=== PATIENT | female | born 1950 | race Caucasian/White ===

== ENCOUNTER 2016-04-16 17:49 | Inpatient (IN) | payer MEDICARE ==
[~2016-04-16] VITALS: Ht 167.6 cm; Wt 50.1 kg
[~2016-04-16 17:49] MED LIST: PAX20
[2016-04-16 17:51] VITALS: BP 135/88; PULSE 106; RESP 20; O2SAT 83
--- NOTE | 2016-04-16 18:15 | ED.REPORT ---
HPI-Dyspnea / Wheezing Date of Service Apr 16, 2016 ED Provider: Juan Pablo Barboza DO This patient is a 65 year old female with a history of pneumonia, splenectomy, and psychiatric problems presenting to the ED complaining of cough that started a week ago. Pt. also complains of fever, chills, dyspnea, and vomiting but denies chest pain, hemoptysis, or diarrhea. EMS found her hypoxic with an oxygen saturation of 83. The pt has received influenza and pneumonia vaccines this year. Nursing Notes Stated Complaint: COUGH Chief Complaint: FLU/Cold Symptoms Nursing Notes Reviewed: Yes Allergies: Coded Allergies: Benzodiazepines (Verified Allergy, Severe, 04/16/16) chlordiazepoxide (Verified Allergy, Severe, 04/16/16) fluoxetine (Verified Allergy, Severe, 04/16/16) Uncoded Allergies: LIBRIUM (Allergy, Unknown, 01/06/05) Scheduled ([sudafed 12 hour ]) 1 TAB PO DAILY Estradiol (Estradiol) 0.5 Mg Tablet 0.5 MG PO DAILY Fluticasone Propionate (Fluticasone Propionate Nasal) 16 Gm [place].susp 1 SPRAY NASAL DAILY Gabapentin (Gabapentin) 300 Mg Capsule 300 MG PO TID Paroxetine (Paroxetine) 20 Mg Tablet 20 MG PO DAILY Scheduled PRN Ibuprofen (Ibuprofen) 400 Mg Tablet 400 MG PO BID PRN PRN For Pain Tizanidine (Tizanidine) 4 Mg Tablet 4 MG PO TID PRN PRN For Pain General Time Seen by MD: 18:15 Chief Complaint Cough Hx Obtained From: Patient, EMS Arrived By: Ambulance Sudden in Onset?: No Onset Occurred: 1 week ago Symptom Duration: Since onset Recent Healthcare: No recent doctor visit, No recent hospitalization Similar Sx Previous: Yes Past Medical History Past Medical History pneumonia Reports: Mental illness Reports: Depression Past Surgical History Splenectomy Smoking History Current Every Day Smoker Social History history of substance abuse Ambulatory Status Independent Review of Systems Review of Systems Note: Denies hemoptysis Basic Review of Systems Eyes: Vision NL Neurologic: NL mental status Psychiatric: Normal thought content Constitutional: Reports: Chills, Fever Respiratory: Reports: Dyspnea on exertion, Non-productive cough Cardiovascular: Denies: Chest pain Complete sys rev & neg: except as marked. GI: Reports: Vomiting, Denies: Diarrhea Physical Exam Initial Vital Signs Vital Signs (First) Date Time Temp Pulse Resp B/P Pulse Ox O2 Delivery O2 Flow Rate FiO2 04/16/16 17:51 37.1 106 20 135/88 83 Room Air 04/16/16 20:44 6 Initial VS: Reviewed Head / Eyes: Atraumatic, Normocephalic, PERRL ENT: Mucous membranes moist, Conjunctiva normal, No scleral icterus Abdomen / GI: Soft, Non-tender, No guarding, No rebound, No distention Extremities: Vascular intact, Neuro intact Skin: Warm, Dry, No cyanosis Neurologic: Alert, Oriented, Nonfocal Psychiatric: Mood/affect normal, Behavior normal, Normal thought content General/Constitutional: Awake, Alert Neck: Atraumatic, Full range of motion Respiratory / Chest: Atraumatic Resp Distress / Stridor: Positive: Resp distress mild crackles in R lung tachypneic hypoxic Cardiovascular: Heart rate NL, Regular rhythm, Heart sounds NL, No murmurs Interpretation & Diagnostics Interpretation & Diagnostics: Angiography, CT, IMPRESSION: 1. No pulmonary embolus. 2. Groundglass opacities in upper lobes and alveolar opacities in the lung bases. Findings are nonspecific, but can be related to pneumonia or pulmonary edema. Please correlate with clinical and laboratory data. 3. Right hilar and mediastinal lymphadenopathy which be reactive or neoplastic. 4. 5 mm, solid left lower lobe lung nodule. Recommend followup CT scan of the chest based on criteria outlined below. 5. Cholelithiasis. Fleischner Society criteria for SOLID lung nodule followup. Nodule size (mm)Low-risk patientHigh-risk [id number] follow-up neededFollow-up at 12 mo; if no change, no further follow-up>0-0Wytzrx-tu CT at 12 mo; if no change, no further follow-up needed.Initial follow-up CT at 6-12 mo, then 18-24 mo if no change. >6-8Initial follow-up CT at 6-12 mo, then 18-24 mo if no change. Initial follow-up CT at 3-6 mo, then 9-12 mo and 24 mo if no change. >8Follow-up CT at 3, 9, 24 mo. Or PET and/or biopsy.Same as for low-risk pts. Fleischner Society criteria for SUB-SOLID lung nodule followup. Solitary pure ground-glass nodules5 mm or lessNo followup needed. >5 mm3 mo follow-up CT to confirm persistence. Then annual CT for 3 years. Part-solid nodules3 mo follow-up CT to confirm persistence. If persistent with solid component <5 mm, annual CT for at least 3 years. If solid component is 5 mm or more, biopsy or surgical resection. Consider PET-CT for lesions > 10 mm. Multiple sub-solid nodulesPure ground glass nodules [address] at 2 and 4 years. Pure ground glass nodules >5 mm without dominant lesion. [address] to confirm persistence, then annual followup CT for at least 3 years. Dominant nodule(s) with part-solid or solid component. [address] to confirm persistence. If persistent, consider biopsy or surgical resection, carlota if lesions have >5 mm solid component. Dictated by: Zulay Herbert MD, PhD on 04/16/2016 at 22:08 Lab Results Interpretation Result Diagram: 04/17/16 0620 04/17/16 0620 Test 04/16/16 18:14 D-Dimer 0.8mg/L (<0.50) Lactic Acid Level 1.6mmol/L (0.4-2.0) Total Bilirubin 0.3mg/dL (0.0-1.2) Aspartate Amino Transf (AST/SGOT) 34U/L (0-50) Alanine Aminotransferase (ALT/SGPT) 13U/L (0-32) Alkaline Phosphatase 72U/L (25-165) Troponin T < 0.010ug/L (0.0-0.011) Pro-B-Type Natriuretic Peptide 455.7pg/mL (0-301) Total Protein 7.1g/dL (6.4-8.4) Albumin 3.1g/dL (3.4-5.0) Hold Bond Top Tube Received (Received) Lab Results Interpretation: NEGATIVE FOR INFLUENZA TYPE A AND B Pulse Oximetry Interpretation Pulse Oximetry Interpretation: 83% on room air Pulse Oximetry: Pulse Ox low ECG Interpretation ECG Interpretation: Normal sinus rhythm with a rate of 96 Time: 18:13 Interpreted by: ED physician X-Ray Chest Interpretation Chest Xray Interpretation: IMPRESSION: No acute cardiopulmonary disease process. Dictated by: Zulay Herbert MD, PhD on 04/16/2016 at 19:08 Interpretation / Wet Read by: Interpret - Radiologist Re-Eval/Medical Decision Source of Hx: Old records, EMS Re-Evaluation/Progress #1: Time of Eval: 19:00 Patient Status: Condition unchanged Re-Evaluation/Progress Note: Discussed results and findings with patient. Spoke with pt. about possible admit. Pt. understands and agrees with plan. All questions have been addressed at this time. Re-Evaluation/Progress #2: Time of Eval: 22:14 Re-Evaluation/Progress Note: Pt. rechecked. Told patient she'd be admitted. Patient understands and agrees with plan. All questions have been addressed at this time. Re-Evaluation/Progress #3: Time of Eval: 22:20 Re-Evaluation/Progress Note: CT consistent with bilateral pneumonia. Pt. is feeling better so she has been taken off of oxygen and sats has dropped to 84%. Reiterated the need to admit her. Pt. understands and agrees with plan. All questions have been addressed Consultation : Referral / Consult Name: Antwan Tamez MD Consulted With: Hospitalist Call Returned at: 23:24 Molder Trimmer: Will see patient, Will see in office, Agrees with eval, Agrees with plan, Accepts admit Note: Consulted with Dr. Tamez, hospitalist, regarding pt.'s case. Discussed findings and results with Dr. Tamez. He agrees with eval and plan. Counseled Regarding: Diagnosis, Lab results, Need for admission Discharge & Departure Impression: Primary Impression: Pneumonia Pneumonia type: due to unspecified organism Laterality: bilateral Lung location: unspecified part of lung Qualified Code: J18.9 - Pneumonia, unspecified organism Additional Impression: Hypoxia Disposition: ADMITTED TO HOSPITAL Discharge Condition All VS Reviewed: Yes Condition: Stable Referrals: An Tapia (PCP) Shani Attestation Portions of this note were transcribed by Kavita Vieyra and Tin Sandy. I, Dr. Barboza personally performed the history, physical exam and medical decision-making ; I reviewed and confirmed the accuracy of the information in the transcribed note. Signed by: Shani Chan, 04/17/2016 and 0158. copies to: An Tapia Todd P DO Apr 16, 2016 18:15 Michelle Vieyra [Kavita] Apr 16, 2016 18:55 TIN SANDY Apr 16, 2016 19:05 Lab Results Interpretation: NEGATIVE FOR INFLUENZA TYPE A AND B Pulse Oximetry Interpretation Pulse Oximetry Interpretation: 83% on room air Pulse Oximetry: Pulse Ox low ECG Interpretation ECG Interpretation: Normal sinus rhythm with a rate of 96 Time: 18:13 Interpreted by: ED physician X-Ray Chest Interpretation Chest Xray Interpretation: IMPRESSION: No acute cardiopulmonary disease process. Dictated by: Zulay Herbert MD, PhD on 04/16/2016 at 19:08 Interpretation / Wet Read by: Interpret - Radiologist Re-Eval/Medical Decision Source of Hx: Old records, EMS Re-Evaluation/Progress #1: Time of Eval: 19:00 Patient Status: Condition unchanged Re-Evaluation/Progress Note: Discussed results and findings with patient. Spoke with pt. about possible admit. Pt. understands and agrees with plan. All questions have been addressed at this time. Re-Evaluation/Progress #2: Time of Eval: 22:14 Re-Evaluation/Progress Note: Pt. rechecked. Told patient she'd be admitted. Patient understands and agrees with plan. All questions have been addressed at this time. Re-Evaluation/Progress #3: Time of Eval: 22:20 Re-Evaluation/Progress Note: CT consistent with bilateral pneumonia. Pt. is feeling better so she has been taken off of oxygen and sats has dropped to 84%. Reiterated the need to admit her. Pt. understands and agrees with plan. All questions have been addressed Consultation : Referral / Consult Name: Antwan Tamez MD Consulted With: Hospitalist Call Returned at: 23:24 Molder Trimmer: Will see patient, Will see in office, Agrees with eval, Agrees with plan, Accepts admit Note: Consulted with Dr. Tamez, hospitalist, regarding pt.'s case. Discussed findings and results with Dr. Tamez. He agrees with eval and plan. Counseled Regarding: Diagnosis, Lab results, Need for admission Discharge & Departure Impression: Primary Impression: Pneumonia Pneumonia type: due to unspecified organism Laterality: bilateral Lung location: unspecified part of lung Qualified Code: J18.9 - Pneumonia, unspecified organism Additional Impression: Hypoxia Disposition: ADMITTED TO HOSPITAL Discharge Condition All VS Reviewed: Yes Condition: Stable Referrals: An Tapia PAC (PCP) Scribe Attestation Portions of this note were transcribed by Kavita Vieyra and Tin Sandy. I, Dr. Barboza personally performed the history, physical exam and medical decision-making ; I reviewed and confirmed the accuracy of the information in the transcribed note. Signed by: Kavita Vieyra and Shani Joseph, 04/17/2016 and 0158. copies to: An Tapia Todd P DO Apr 16, 2016 18:15 Michelle Vieyra [Kavita] Apr 16, 2016 18:55 TIN SANDY Apr 16, 2016 19:05
[2016-04-16 18:24] LABS: BASOPHILS % (AUTO) 0.6 % (0-3); Mean Corpuscular Volume 90.8 fL (81-100)
[2016-04-16 18:27] LABS: EOSINOPHILS % (AUTO) 4.9 % (0-5); MONOCYTES % (AUTO) 9.6 % (4-12); Mean Corpuscular Hemoglobin 30.6 pg (27.0-35.0); NEUTROPHILS % (AUTO) 72.7 % (40-74); Platelet Count 324 bil/L (150-400)
[2016-04-16 18:48] LABS: TROPONIN T < 0.010 ug/L (0.0-0.011)
[2016-04-16] MEDS ORDERED: cefTRIAXone Inj 2,000 MG in IV Premix 1 EACH IV ONE (18:55)
[2016-04-16] MEDS ORDERED: 0.9% Sodium Chloride 1,000 ML IV ONE (18:55)
--- NOTE | 2016-04-16 19:10 | DRSVH ---
PROCEDURE: X-RAY CHEST ONE VIEW, PORTABLE ([id number]) INDICATIONS: chest pain TECHNIQUE: One view of the chest was acquired. COMPARISON: [facility], , CHEST 2 VIEW, 12/11/2015, 3:08. FINDINGS: Surgical changes and devices: None. Lungs and pleura: No pleural effusions or pneumothorax. Lungs are clear. Lungs are hyperinflated zamora ggesting COPD. Please correlate with clinical data. Mediastinum: Mediastinal contours appear normal. Heart size is normal. Bones and chest wall: No suspicious bony lesions. Overlying soft tissues appear unremarkable. IMPRESSION: No acute cardiopulmonary disease process. Dictated by: Zulay Herbert MD, PhD on 04/16/2016 at 19:08 Approved by: Zulay Herbert MD, PhD on 04/16/2016 at 19:08
[2016-04-16] MEDS ORDERED: Albuterol-Ipratropium 3 mL Inhalation Solution NEB ONE (20:30)
[2016-04-16 20:44] VITALS: PULSE 90; RESP 22; O2SAT 94
--- NOTE | 2016-04-16 22:09 | DRSVH ---
PROCEDURE: CT ANGIO CHEST PULMONARY EMBOLISM ([id number]) INDICATIONS: hypoxia, elevated D-Dimer TECHNIQUE: After the administration of intravenous contrast, 2 mm thick sections acquired from the pulmonary api renzo to the posterior costophrenic angles. 3-dimensional maximum intensity projection (MIP) coronal a nd sagittal reformats were then acquired through the thorax. For radiation dose reduction, the follo wing was used: automated exposure control, adjustment of mA and/or kV according to patient size. COMPARISON: None. FINDINGS: Image quality: Excellent. Pulmonary arteries: Pulmonary arteries are normal in size, and demonstrate no intraluminal filling d efects to suggest central pulmonary embolism. Lungs and pleura: Groundglass opacities noted in the upper lobes bilaterally. Groundglass opacity i s nonspecific but can be related to pneumonia or pulmonary edema. Alveolar opacities noted in the mariam ng bases bilaterally which could represent pneumonia or pulmonary edema. There is a 5 mm solid nodul e in the left lower lobe. No pleural effusions. No pleural effusions or pneumothorax. Central and peripheral airways are patent. Mediastinum: Heart size is normal, without pericardial effusion. 1.4 cm right hilar lymph node is no mahin. 1.1 cm precarinal mediastinal lymph node is noted. Large aortopulmonary window mediastinal lym ph nodes are noted with largest node measuring 1.2 cm in short axis. Thoracic aorta is normal in tio iber and enhancement moderate-sized hiatal hernia is noted. Bones and chest wall: No suspicious bony lesions. Ribs and thoracic spine appear intact throughout. Thyroid gland is within normal limits. No axillary or supraclavicular adenopathy. Abdomen: Gallstones are noted visualized portion of the gallbladder Limited evaluation of the upper abdomen is otherwise within normal limits.. IMPRESSION: 1. No pulmonary embolus. 2. Groundglass opacities in upper lobes and alveolar opacities in the lung bases. Findings are nons pecific, but can be related to pneumonia or pulmonary edema. Please correlate with clinical and labo ratory data. 3. Right hilar and mediastinal lymphadenopathy which be reactive or neoplastic. 4. 5 mm, solid left lower lobe lung nodule. Recommend followup CT scan of the chest based on criter ia outlined below. 5. Cholelithiasis. Fleischner Society criteria for SOLID lung nodule followup. Nodule size (mm)Low-risk patientHigh-risk [id number] follow-up neededFollow-up at 12 mo; if no casanova e, no further follow-up>1-3Cealfr-up CT at 12 mo; if no change, no further follow-up needed.Initial f ollow-up CT at 6-12 mo, then 18-24 mo if no change. >6-8Initial follow-up CT at 6-12 mo, then 18-24 mo if no change. Initial follow-up CT at 3-6 mo, then 9-12 mo and 24 mo if no change. >8Follow-up CT at 3, 9, 24 mo. Or PET and/or biopsy.Same as for low-risk pts. Fleischner Society criteria for SUB-SOLID lung nodule followup. Solitary pure ground-glass nodules5 mm or lessNo followup needed. >5 mm3 mo follow-up CT to confirm persistence. Then annual CT for 3 years. Part-solid nodules3 mo follow-up CT to confirm persistence . If persistent with solid component <5 mm, annual CT for at least 3 years. If solid component is 5 mm or more, biopsy or surgical resection. Consider PET-CT for lesions > 10 mm. Multiple sub-solid nodulesPure ground glass nodules [address] at 2 and 4 years. Pure ground glass nodules >5 mm without dominant lesion. [address] to confirm persistence, then annual followup CT for at least 3 years. Dominant nodule(s) with part-solid or solid component. [address] to confirm persistence. If persistent, consider biopsy or surgical resection, carlota if lesions have >5 m m solid component. Dictated by: Zulay Herbert MD, PhD on 04/16/2016 at 22:08 Approved by: Zulay Herbert MD, PhD on 04/16/2016 at 22:08
[2016-04-16] MEDS ORDERED: Azithromycin Inj 500 MG in Dextrose 5% w/Vial Mate 250 ML IV ONE (22:25)
[2016-04-17] VITALS (11 sets, daily range): BP systolic 118–141; BP diastolic 71–82; PULSE 97–111; RESP 16–26; O2SAT 90–99
[2016-04-17] MEDS ORDERED: Ondansetron 2 mg/mL 2 mL Inj IVPUSH PRN (00:25)
[2016-04-17] MEDS ORDERED: Alum-Mag Hydrox-Simeth 30 mL Suspension PO PRN ×2 (00:25→00:35)
[2016-04-17] MEDS ORDERED: 0.9% Sodium Chloride 1,000 ML IV SCH (00:35)
[2016-04-17] MEDS ORDERED: Albuterol 2.5 mg/3 mL Inhalation Solution NEB PRN (00:35)
[2016-04-17] MEDS ORDERED: Polyethylene Glycol (PEG) 17 Gm Powder PO PRN (00:35)
[2016-04-17] MEDS: Heparin 5,000 Unit/mL Inj SUBQ SCH ×3 (01:20→17:08)
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
--- NOTE | 2016-04-17 01:38 | ABG ---
DateTimeAnalyzed 01:34:00 -_ pH ____7.398 - 7.350 7.450 pCO2 ___43.1__ -mmHg 35.0 45.0 pO2 ___78.4__ -mmHg 69.0 116 HCO3- ___26.0__ -mmol/L 22.0 26.0 ABE ____1.5__ -mmol/L -2.0 2.0 tHb ___11.5__ -g/dL O2Hb ___93.6__ -% COHb ____1.3__ -% MetHb ____1.0__ -% sO2 ___95.8__ -% FIO2 ___45.0__ -% Drawn By MK - Date/Time Notified____ 01:38:00 -_ Liter_Flow ____9.0__ -L/min Oxygen Device 1 __oxymask - B 766 -mmHg tO2 ___15.2__ -Vol% Ernie test _Positive -
[2016-04-17] MEDS ORDERED: SUDAFED PO (01:47)
[2016-04-17] MEDS ORDERED: FLUT16SP NASAL (01:47)
[2016-04-17] MEDS ORDERED: ESTR0.5T PO (01:47)
[2016-04-17] MEDS ORDERED: IBUP400T22 PO (01:54)
[2016-04-17] MEDS ORDERED: TIZA4TAB4 PO (01:54)
[2016-04-17] MEDS ORDERED: GABA-502 PO (01:54)
[2016-04-17] MEDS ORDERED: PARO20TA5 PO (01:54)
[2016-04-17] MEDS: guaiFENesin 600 mg ER12 Tablet PO PRN ×2 (02:28→09:43)
--- NOTE | 2016-04-17 04:35 | NUR ---
Admit to 1028 Arrived from ED at 0050, able to transfer self to BR and bed. Arrived on 7L O2 via simple mask; oximetry showed progressive need for O2, currently at 15 L with sats 86-95%; when pt begins to sleep, sat dropping lower; Md ordered BiPAP now. Received IV antibiotics in ED. Otherwise, pt is alert and engaged in care, oriented to hospital routines, IV fluids infusing, SCDs, telemetry. Hourly rounding ongoing.
[2016-04-17] MEDS: Albuterol-Ipratropium 3 mL Inhalation Solution NEB SCH ×4 (05:20→20:31)
--- NOTE | 2016-04-17 05:21 | NUR ---
Transfer to 2013 Pt moved to 2013 with all possessions, RT to start neb treatment and BiPAP per orders.
--- NOTE | 2016-04-17 06:20 | NUR ---
oxygen/SOB pt transferred to room 2012, placed pt on 13L oxy mask SpO2 mid 90s, RT gave breathing treatment, pt with a persistent cough, LS course, pt stating she feels like she cant take a full breath when she starts coughing. called MD, order to TKO IVF, and wait for bipap,
[2016-04-17 06:47] LABS: BASOPHILS % (AUTO) 0.5 % (0-3); EOSINOPHILS % (AUTO) 3.6 % (0-5); MONOCYTES % (AUTO) 7.8 % (4-12); Mean Corpuscular Hemoglobin 30.9 pg (27.0-35.0); Mean Corpuscular Volume 91.6 fL (81-100); NEUTROPHILS % (AUTO) 80.7 % (40-74); Platelet Count 340 bil/L (150-400)
[2016-04-17] MEDS: PARoxetine 20 mg Tablet PO SCH (08:26)
[2016-04-17 09:08] LABS: APPEARANCE,URINE HAZY (CLEAR,HAZY); COLOR,URINE YELLOW (YELLOW); OCCULT BLOOD,URINE NEGATIVE (NEGATIVE); UROBILINOGEN,URINE NORMAL (NORMAL)
--- NOTE | 2016-04-17 14:50 | NUR ---
P: Respiratory Distress I: Pt on 11-13L/OM with sats 91-97%. Sinus tach 100-120's. Taking diet and fluids well. NS TKO. Voiding per bedpan without difficulty. Large formed brown BM. VSS. Afebrile. Turns self. c/o back pain and medicated with Tylenol and kpad with good relief. Medicated for cough. Sputum culture sent. Labs drawn and pending. Pt called her and talked with him. E: Stable S: Alert and Oriented x3. Uses call light appropriately. Frequent rounding.
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
--- NOTE | 2016-04-17 16:31 | DRSVH ---
[facility] [address] [place] [address] Echocardiogram Report Name: JONES SANCHEZ RStudy Date : 04/17/2016 Height: 66 in Hospital Exam Location: [facility] Weight: 119 lb Gender: Female BSA: 1.6 m2 : 1950 Age: 65 yrs BP: 141/82 mmHg Reason For Study: WT. LOSS, COUGH, Ordering Physician: Performed By: Aliyah Santo Referring Physician: Davion Monae Interpretation Summary 1. Normal left ventricular size, wall thickness with normal to hyperdynamic systolic function. Estimated EF is 70% 2. Normal right ventricular size and systolic function. The estimated RVSP is 33 mm Hg. 3. No evidence for significant valvular pathology There is no old study for comparison Procedure: A two-dimensional transthoracic echocardiogram with color flow and Doppler was performed. The study quality was technically difficult. A contrast injection of Definity was performed to improve assessment of LV function. Contrast was injected into an intravenous site in the left arm. A total of 4 cc of contrast was given. There is no prior echocardiogram noted for this patient. The patient was in a tachycardic rhythm during the exam. The heart rate ranged between 101 - 106 bpm during the study. The patient did well with the Definity Contrast. No complications noted. Left Ventricle: The left ventricle is normal in size. The ejection fraction is estimated to be 70-75%. Left ventricular systolic function is normal. No obvious wall motion abnormalities. Spectral Doppler of the mitral valve shows a normal E/A wave ratio. Right Ventricle: The right ventricle is normal in size and function. Atria: The left atrium grossly appears normal in size. Right atrial size is normal. There is no Doppler evidence for an atrial septal defect. Mitral Valve: The mitral valve is grossly normal. There is trace mitral regurgitation. Aortic Valve: The aortic valve is not well visualized. The aortic valve opens well. No aortic regurgitation is present. Tricuspid Valve: The tricuspid valve leaflets are thin and pliable. There is mild tricuspid regurgitation. The right ventricular systolic pressure is estimated at 33 mmHg assuming a right atrial pressure of 3 mm Hg. Pulmonic Valve: The pulmonic valve is not well visualized. There is a trace or physiologic amount of pulmonic regurgitation. Great Vessels: The aortic root is normal size. The ascending aorta could not be visualized. The IVC is of normal diameter and collapses greater than 50% with a sniff. This suggests a low right atrial pressure of 3 mm Hg. Pericardium/ Pleura There is no pericardial effusion. There is no pleural effusion. MMode/2D Measurements & Calculations LVIDd: 4.2 cm LA dimension: 2.5 cm RA long axis LVOT diam: 1.9 cm LVIDs: 2.4 cm AoV Openin.1 cm FS: 43.5 % LA A4 area: 15.2 cm RA area Ao root diam: 3.0 cm IVSd: 0.82 cm LA length (vol) Ao Arch Diam LVPWd: 0.86 cm : 13.5 cm (Proximal trans.) IVC diam: 1.4 cm RA vol : 35.8 ml RA : 22.3 mm2 LV dodge. diameter/BSALV sys. diameter/BSA (cm/m^2): 2.6 (cm/m^2): 1.5 Doppler Measurements & Calculations Ao V2 max MV E max vaibhav MV E/A: 1.1 TR max vaibhav : 116.1 cm/sec : 116.5 cm/sec Med Peak E' Vaibhav : 272.9 cm/sec Ao max PG MV A max vaibhav TR max PG : 5.4 mmHg : 106.8 cm/sec E/E' med: 11.6 : 29.8 mmHg Ao mean PG MV P1/2t: 45.0 msec Lat Peak E' Vaibhav PA V2 max : 144.1 cm/sec LVOT Max Vaibhav E/E' lat: 9.5 PA mean PG : 107.9 cm/sec MAURY(I,D): 3.0 cm PA Accel Time sev ratio: 1.1 : 0.05 sec MV dec time MV P1/2t max vaibhav Ao V2 mean LV V1 max PG : 0.15 sec : 86.4 cm/sec Ao V2 VTI: 16.0 cmLV V1 VTI MVA(P1/2t): 4.9 cm2 : 17.1 cm MAURY(V,D): 2.6 cm2 PA V2 mean MAURY indexed to BSA E/e' average : 96.9 cm/sec (cm^2/m^2): 1.9 : 10.6 Reading Physician:04:30 PM
--- NOTE | 2016-04-17 17:29 | PCM.PNMED ---
Subjective Date of Service Apr 17, 2016 Subjective 65-year-old generally healthy woman presents with 1 month of chronic progressive cough and dyspnea. She reports continued cough which is minimally productive of white or harper phlegm. There is no marked dyspnea at rest despite her significant oxygen deficit. She states she has flushes when she coughs but otherwise no sweats or shaking chills. She has had no recent infectious exposure. Her body weight is largely unchanged. He has no symptoms outside of her respiratory tract. Exam Vital Signs Vital Sign - Last Date Time Temp Pulse Resp B/P Pulse Ox O2 Delivery O2 Flow Rate FiO2 04/17/16 16:47 36.7 98 16 118/71 96 OxyMask 12.00 Intake and Output 04/16/16 04/16/16 04/17/16 Cumulative From/Thru 15:00 23:00 07:00 04/16/16 17:51 - 04/17/16 06:01 Intake Total 1178 ml 1178 ml Output Total 1860 ml 1860 ml Balance -682 ml -682 ml Intake Oral 600 ml 600 ml IV Total 578 ml 578 ml Output Urine Total 1860 ml 1860 ml Exam General: Thin but generally healthy-appearing woman in no acute distress HEENT: sclerae anicteric, oral mucosa moist Neck: no JVD Chest: Dry inspiratory crackles in all lung araujo bilaterally; no egophony or fremitus Cardiac: S1S2, no murmur Abdomen: BS normal, non-tender, no organomegaly Extremities: No edema Neuro: A&O, cranial nerves symmetric, motor strength 5/5, coordination normal IVs and Medications Medications Reviewed: Medications were reviewed in detail Lab and Diagnostics Result Diagram: 04/17/16 0620 04/17/16 0620 X-Rays, CTs and MRIs PROCEDURE: X-RAY CHEST ONE VIEW, PORTABLE ([id number]) INDICATIONS: chest pain TECHNIQUE: One view of the chest was acquired. COMPARISON: [facility], , CHEST 2 VIEW, 12/11/2015, 3:08. FINDINGS: Surgical changes and devices: None. Lungs and pleura: No pleural effusions or pneumothorax. Lungs are clear. Lungs are hyperinflated suggesting COPD. Please correlate with clinical data. Mediastinum: Mediastinal contours appear normal. Heart size is normal. Bones and chest wall: No suspicious bony lesions. Overlying soft tissues appear unremarkable. IMPRESSION: No acute cardiopulmonary disease process. Additional Diagnostics PROCEDURE: CT ANGIO CHEST PULMONARY EMBOLISM ([id number]) INDICATIONS: hypoxia, elevated D-Dimer COMPARISON: None. FINDINGS: Image quality: Excellent. Pulmonary arteries: Pulmonary arteries are normal in size, and demonstrate no intraluminal filling defects to suggest central pulmonary embolism. Lungs and pleura: Groundglass opacities noted in the upper lobes bilaterally. Groundglass opacity is nonspecific but can be related to pneumonia or pulmonary edema. Alveolar opacities noted in the lung bases bilaterally which could represent pneumonia or pulmonary edema. There is a 5 mm solid nodule in the left lower lobe. No pleural effusions. No pleural effusions or pneumothorax. Central and peripheral airways are patent. Mediastinum: Heart size is normal, without pericardial effusion. 1.4 cm right hilar lymph node is noted. 1.1 cm precarinal mediastinal lymph node is noted. Large aortopulmonary window mediastinal lymph nodes are noted with largest node measuring 1.2 cm in short axis. Thoracic aorta is normal in caliber and enhancement moderate-sized hiatal hernia is noted. Bones and chest wall: No suspicious bony lesions. Ribs and thoracic spine appear intact throughout. Thyroid gland is within normal limits. No axillary or supraclavicular adenopathy. Abdomen: Gallstones are noted visualized portion of the gallbladder Limited evaluation of the upper abdomen is otherwise within normal limits.. IMPRESSION: 1. No pulmonary embolus. 2. Groundglass opacities in upper lobes and alveolar opacities in the lung bases. Findings are nonspecific, but can be related to pneumonia or pulmonary edema. Please correlate with clinical and laboratory data. 3. Right hilar and mediastinal lymphadenopathy which be reactive or neoplastic. 4. 5 mm, solid left lower lobe lung nodule. Recommend followup CT scan of the chest based on criteria outlined below. 5. Cholelithiasis. Assessment & Plan 65 year old female with 4 weeks of progressive cough and dyspnea presents with acute respiratory failure with hypoxia Acute and/or high-risk problems: # Systemic inflammatory syndrome, acute. Respiratory rate was 22, heart rate was 106, white blood cell count 13.2 on admission. Clinical impression is atypical pulmonary infectious or autoimmune process. She is not clinically septic. - Vital signs with supportive measures - And her urine output and maintain hydration Acute Hypoxic Respiratory Failure. Room air oxygenation 83% on admission. X- ray without infiltrate. Chest CT with interstitial process. Likely atypical pulmonary infection, not CPAP. - Continue current oxygen support - Antibiotics as per infectious disease customer service sales consultant - Ambulate patient and assess oxygen needs. Resolved, chronic, and/or stable problems: H/o Splenectomy, POA - No evidence of infection with encapsulated organism H/o PTSD, POA -Plan to continue Paxil 20mg daily H/o Chronic LBP, POA -Plan to continue patient's Gabapentin 300mg TID H/o Menopausal symptoms, POA -Will hold Estradiol H/o IBS, POA -Will continue patient's Dicyclomine Incidental Pulmonary Nodule -5mm nodule at LLL found. Recommend follow up as outpatient as appropriate for approximately [id number] smoking history VTE Prophylaxis: Sub-Q Heparin (Unfractionated) VTE Mechanical Devices: Intermittant Pneumatic CD Resuscitation Status: CPR: Attempt Resuscitation Time spent 35 minutes Logan Sotelo MD Apr 17, 2016 17:29
--- NOTE | 2016-04-17 18:18 | CONS ---
[address] [address] CONSULTATION REPORT PATIENT: JONES SANCHEZ : 1950 MR#: [id number] ADMIT: 04/16/2016 JOB ID: [id number] DATE OF SERVICE: 04/17/2016 PULMONARY CONSULTATION: REQUESTING PHYSICIAN: Logan Sotelo MD REASON FOR CONSULTATION: Abnormal chest x-ray. HISTORY OF PRESENT ILLNESS: The patient is a 65-year-old female who was in her usual state of good health until three weeks ago when she developed a cough, fever, and malaise. Symptoms sort of stabilized for the next week or so and then she developed increasing fever, cough, nausea, vomiting, shortness of breath, chills, and sputum that was white and at times yellow. There was no hemoptysis. There was no pleuritic chest pain per se. She did have a mild headache, though has chronic headaches. Also had some myalgias, mostly related to the interscapular area. No arthralgias per se. No rash. No sore throat. No palpable lymph nodes. She continued to eat fairly well. Because of worsening symptomatology, she presented herself to the emergency department. The patient has no prior lung disease. She did smoke until two years ago, when she converted to the E-cigarettes. The patient was an compliance review officer in [place] and did not have any untoward exposures in that environment. PETS: Dog. Did have birds in the remote past. She was had cockatiels and lovebirds, but not for 10 years. GEOGRAPHIC HISTORY: The patient was born in [place]. Lived in the [facility] her entire life. TRAVEL HISTORY: No travel to the [facility], the [facility], or the [facility]. HOBBIES: No hobbies which expose her to dust, fumes, or solvents. PAST MEDICAL HISTORY: Alcohol use in the remote past. Has had pneumonia in the past. Had a splenectomy. PTSD in 2004. REVIEW OF SYSTEMS: No known heart disease. No anginal type chest pain. Appetite is good. Weight is stable, though she always has a relatively low weight, describing herself as "skinny my entire life." No diarrhea. No nausea or vomiting. No problems. PHYSICAL EXAMINATION: Vital signs: Temperature is 36.5 with T-max during her hospitalization being 37.1, pulse about 100, respiratory rate 20 to 26, blood pressure 122/71, O2 sat on 11 L OxyMask is in the mid to high 90s; however, when she sleeps O2 saturations drop into the 80s. General appearance: Well developed, well nourished, thin female, in mild respiratory discomfort. Fiddling with oxygen mask repeatedly as it slips off. Eyes: Conjunctivae are pink. Lymph nodes: Non palpable. Chest was clear, with somewhat diminished breath sounds. No use of accessory muscles at rest. Heart: Regular rhythm. Heart tones normal. No S3. Abdomen: Soft. Nondistended. Nontender. Liver and spleen not palpable. No masses palpable. Bowel tones present. Extremities: No clubbing, cyanosis, or pretibial edema. Skin: No rash. LABORATORY: Shows a white count of 16,200, with 80 polymorphonuclears, 7 lymphs, 7 monocytes, 3 eosinophils. Hemoglobin 12.2, platelet count 340,000. Sodium 133, potassium 4.4, chloride 94, CO2 is 24, BUN 17, creatinine 0.6, glucose 102. Calcium 9.3, with an albumin of 3.1. Transaminases are normal. Alkaline phosphatase normal. Troponin-T is undetectable. ProBNP is 455, upper limits normal being 301. Lactic acid 1.6. Urine for Legionella antigen is negative. Urine for streptococcus antigen is negative. Influenza screen is negative. Chest x-ray shows some hyperinflation with flattening of the diaphragm. Chest x-ray is otherwise normal. CT scan of the chest with PE protocol shows ground-glass opacities in the upper lobes bilaterally. A 5 mm nodule in the left lower lung field. Slightly large hilar lymph nodes being 1.4 cm on the right and 1.1 on the left. ASSESSMENT: Symptoms of "atypical pneumonia." Given the prevalence of influenza in the community, I suspect she is suffering from influenza. However, the ground-glass opacities are quite nonspecific and can cover viral, bacterial, and for that matter protozoan and fungal infections. I do not get a good sense that she has any exposure history and do not consider hypersensitivity pneumonitis high in the list. Of course cryptogenic organizing pneumonia is always a possibility, though very difficult to diagnose. Overall, I suspect she has an acute infection with influenza leading the list by far. Respiratory syncytial virus also would be considered as the two are almost indistinguishable. For the moment I would treat expectantly with oseltamivir and antibiotics for atypical infections such as azithromycin or possibly doxycycline. I understand Infectious Disease will be seeing this patient and will therefore leave the antibiotic regimen choice to their expertise. From a pulmonary standpoint, I would monitor the patient. Suspect she will either get better in the next few days. If she worsens, will consider further studies including possible bronchoscopy for alternative explanations with KRYSTINA ([place] syndrome) being voiced. PLAN: Expectant observation with appropriate antiviral and antibacterial medications. Thank you very much, Dr. Sotelo, for asking us to see this most interesting and delightful individual. Will follow her respiratory status closely along with you.
[2016-04-17] MEDS ORDERED: Azithromycin Inj 500 MG in Dextrose 5% w/Vial Mate 250 ML IV SCH (22:00)
[2016-04-17] MEDS: cefTRIAXone Inj 2,000 MG in IV Premix 1 EACH IV SCH (23:12)
[2016-04-18] VITALS (16 sets, daily range): BP systolic 117–143; BP diastolic 74–95; PULSE 70–107; RESP 15–26; O2SAT 80–98
[2016-04-18] MEDS: Heparin 5,000 Unit/mL Inj SUBQ SCH ×4 (00:33→23:40)
--- NOTE | 2016-04-18 07:58 | NUR ---
V-Tach/Pain Pt had 6 beats of asymptomatic V-Tach at 0450. Pt has c/o 7/10 pain in back, chest, neck, and head r/t coughing.
[2016-04-18] MEDS: Albuterol-Ipratropium 3 mL Inhalation Solution NEB SCH ×4 (08:31→20:40)
[2016-04-18] MEDS: PARoxetine 20 mg Tablet PO SCH (08:54)
--- NOTE | 2016-04-18 11:00 | NUR ---
Generalized pain PT c/o generalized pain /10 when breathing and coughing and with movement. Tylenol helps somewhat stated by the pt but would like to try something else that isn't a narcotic. Mentioned to MD during rounds and he suggested movement and heat packs. We will try this throughout the day and continue to monitor.
--- NOTE | 2016-04-18 14:02 | PROG NOTE ---
[address] [address] PROGRESS NOTE PATIENT: JONES SANCHEZ : 1950 MR#: [id number] ADMIT: 04/16/2016 JOB ID: [id number] DATE: 04/18/2016 PULMONARY FOLLOWUP NOTE: PROBLEM: Pneumonia. SUBJECTIVE: Breathing more comfortably today. Still with some cough exacerbated by taking a deep breath. Minimal to no phlegm. Breathing more comfortably. Appetite remains marginal but she feels a little bit more hungry today. OBJECTIVE: Temperature 36.6 with T-max being 37.5, pulse 70-100, respiratory rate 16, blood pressure 118/78, O2 sat on 6 liters is 96%. General appearance: A bit tired appearing but no acute distress. Speaking easily. Able to carry on appropriate conversation. Eyes: Conjunctivae are pink. Chest: Fair breath sounds bilaterally. There are diffuse crackles throughout both lung araujo, maybe sparing the right upper lung field, but rather diffuse. No use of accessory muscles. Heart tones normal. Abdomen is soft. Bowel tones present. LABORATORY DATA: Urine for Legionella antigen is negative. Viral respiratory panel using PCR is negative including that for influenza, parainfluenza, and respiratory syncytial virus. Sputum Gram stain shows rare polys. A few mixed merrill. ASSESSMENT: Pneumonia. Serology to my mind is presently negative. Expected influenza. The situation is now complicated as we have no apparent etiology. Still suspect viral. KRYSTINA usually more prolonged, though possibly relatively asymptomatic from inactivity with a chronic low body weight. Fortunately the patient's respiratory status has significantly improved. Down from 13 L to 6 L and oxygenating better. If we are shon, the symptoms will resolve and radiographic abnormalities will clear. Otherwise may need to become more aggressive in evaluation with possibilities being KRYSTINA, other fungal disease, possibility of bronchioalveolar carcinoma, and smoking-related interstitial lung disease. PLAN: 1. Continue to monitor for the moment. 2. Encourage oral caloric intake.
[2016-04-18 14:08] LABS: Cryptococcal Ag Negative (Negative)
--- NOTE | 2016-04-18 15:31 | PCM.PNMED ---
Subjective Date of Service Apr 18, 2016 Subjective 65-year-old generally healthy woman presents with 1 month of chronic progressive cough and dyspnea. She reports continued cough which is minimally productive of white phlegm. She reports significant dyspnea with minimal activity. She states she has muscle twitches when she coughs but otherwise no sweats or shaking chills. Exam Vital Signs Vital Sign - Last Date Time Temp Pulse Resp B/P Pulse Ox O2 Delivery O2 Flow Rate FiO2 04/18/16 12:47 36.6 70 16 118/78 96 Nasal Cannula 6.00 Intake and Output 04/17/16 04/17/16 04/18/16 Cumulative From/Thru 15:00 23:00 07:00 04/16/16 17:51 - 04/18/16 04:47 Intake Total 640 ml 720 ml 2538 ml Output Total 1000 ml 1000 ml 3860 ml Balance -360 ml -280 ml -1322 ml Intake Oral 640 ml 720 ml 1960 ml IV Total 578 ml Output Urine Total 1000 ml 1000 ml 3860 ml # Bowel Movements 1 1 2 Exam General: Thin but generally healthy-appearing woman with high flow oxygen mask HEENT: sclerae anicteric, oral mucosa moist Neck: no JVD, supple Chest: Dry inspiratory crackles in all lung araujo bilaterally, no dullness Cardiac: S1S2, no murmur Abdomen: BS normal, non-tender, Extremities: No edema Neuro: A&O, cranial nerves symmetric, motor strength 5/5, coordination normal IVs and Medications Medications Reviewed: Medications were reviewed in detail Lab and Diagnostics Absolute eosinophil count 800 Procalcitonin 0.67 CRP 33.9 Result Diagram: 04/17/1661904/17/1620 Microbiology Nasopharyngeal swab: No chlamydia or mycoplasma; viral panel negative Sputum Gram stain - nonpurulent Influenza PCR negative Urinary strep pneumonia screen negative Blood cultures 2 negative from 04/16 . X-Rays, CTs and MRIs PROCEDURE: X-RAY CHEST ONE VIEW, PORTABLE ([id number]) INDICATIONS: chest pain TECHNIQUE: One view of the chest was acquired. COMPARISON: [facility], , CHEST 2 VIEW, 12/11/2015, 3:08. FINDINGS: Surgical changes and devices: None. Lungs and pleura: No pleural effusions or pneumothorax. Lungs are clear. Lungs are hyperinflated suggesting COPD. Please correlate with clinical data. Mediastinum: Mediastinal contours appear normal. Heart size is normal. Bones and chest wall: No suspicious bony lesions. Overlying soft tissues appear unremarkable. IMPRESSION: No acute cardiopulmonary disease process. Additional Diagnostics PROCEDURE: CT ANGIO CHEST PULMONARY EMBOLISM ([id number]) INDICATIONS: hypoxia, elevated D-Dimer COMPARISON: None. FINDINGS: Image quality: Excellent. Pulmonary arteries: Pulmonary arteries are normal in size, and demonstrate no intraluminal filling defects to suggest central pulmonary embolism. Lungs and pleura: Groundglass opacities noted in the upper lobes bilaterally. Groundglass opacity is nonspecific but can be related to pneumonia or pulmonary edema. Alveolar opacities noted in the lung bases bilaterally which could represent pneumonia or pulmonary edema. There is a 5 mm solid nodule in the left lower lobe. No pleural effusions. No pleural effusions or pneumothorax. Central and peripheral airways are patent. Mediastinum: Heart size is normal, without pericardial effusion. 1.4 cm right hilar lymph node is noted. 1.1 cm precarinal mediastinal lymph node is noted. Large aortopulmonary window mediastinal lymph nodes are noted with largest node measuring 1.2 cm in short axis. Thoracic aorta is normal in caliber and enhancement moderate-sized hiatal hernia is noted. Bones and chest wall: No suspicious bony lesions. Ribs and thoracic spine appear intact throughout. Thyroid gland is within normal limits. No axillary or supraclavicular adenopathy. Abdomen: Gallstones are noted visualized portion of the gallbladder Limited evaluation of the upper abdomen is otherwise within normal limits.. IMPRESSION: 1. No pulmonary embolus. 2. Groundglass opacities in upper lobes and alveolar opacities in the lung bases. Findings are nonspecific, but can be related to pneumonia or pulmonary edema. Please correlate with clinical and laboratory data. 3. Right hilar and mediastinal lymphadenopathy which be reactive or neoplastic. 4. 5 mm, solid left lower lobe lung nodule. Recommend followup CT scan of the chest based on criteria outlined below. 5. Cholelithiasis. Assessment & Plan 65 year old female with 4 weeks of progressive cough and dyspnea presents with acute respiratory failure with hypoxia Acute and/or high-risk problems: # Systemic inflammatory syndrome, acute. Respiratory rate was 22, heart rate was 106, white blood cell count 13.2 on admission. Inflammatory markers are elevated Clinical impression is atypical pulmonary infectious or autoimmune process. She is not clinically septic. - Vital signs with supportive measures - And her urine output and maintain hydration Acute Hypoxic Respiratory Failure. Room air oxygenation 83% on admission. X- ray without infiltrate. Chest CT with interstitial process, mediastinal adenopathy. Absolute eosinophils are increased. Likely atypical pulmonary infection, not CPAP, but PCR for typical pathogens is negative. - Antibiotics as per infectious disease rehabilitation consultant - continuing ceftriaxone and azithromycin at present - Continue current oxygen support - Ambulate patient and assess oxygen needs. Resolved, chronic, and/or stable problems: H/o Splenectomy, POA - No evidence of infection with encapsulated organism H/o PTSD, POA -Plan to continue Paxil 20mg daily H/o Chronic LBP, POA -Plan to continue patient's Gabapentin 300mg TID H/o Menopausal symptoms, POA - Continue Estradiol H/o IBS, POA -Will continue patient's Dicyclomine Incidental Pulmonary Nodule -5mm nodule at LLL found. Recommend follow up as outpatient as appropriate for approximately [id number] smoking history VTE Prophylaxis: Sub-Q Heparin (Unfractionated) VTE Mechanical Devices: Intermittant Pneumatic CD Resuscitation Status: CPR: Attempt Resuscitation Time spent 30 minutes Logan Sotelo MD Apr 18, 2016 15:31
--- NOTE | 2016-04-18 17:48 | NUR ---
Social Work: Initial Assessment [employer] met with patient and patient's spouse to complete initial assessment, discuss dc planning, and SW role explained. Patient's spouse, Juancho Guaman- [phone], was also present. Patient's confirmed that her insurance is with [employer]. Patient's primary Care Physician is Dr. Davion Monae. Patient does not have a DPOA and declined information. Patient was alert and oriented x3. Patient lives in [facility] [address] with no DME and no history of HH or SNF. Patient is currently on high levels of O2, but does not have home O2. Patient plans to discharge home with spouse via POV. SW will continue to follow to rule out the need for home O2. Plan: Patient is likely to discharge home with spouse via POV. SW will continue to follow to rule out the need for home O2. [place] LMSW, BERTA Addendum: 04/18/16 at 1754 by LOS MARX Amended: Links added.
[2016-04-18] MEDS: cefTRIAXone Inj 2,000 MG in IV Premix 1 EACH IV SCH (20:30)
[2016-04-18] MEDS ORDERED: HYDROcodone-APAP 5-325 mg Tablet PO PRN (20:45)
[2016-04-18] MEDS ORDERED: HYDROcodone-APAP 5-325 mg Tablet PO ONE (23:35)
[2016-04-19] VITALS (9 sets, daily range): BP systolic 103–142; BP diastolic 64–89; PULSE 82–103; RESP 15–24; O2SAT 93–97
--- NOTE | 2016-04-19 04:12 | NUR ---
Respiratory/Pain Pt initially on 5LPM via NC, sp02>98%, decreased 02 to 3LPM, sp02 94-95%, Pt reported slightly dyspneic on exertion, fairly tolerates getting oob sba to BSC, Pt c/o chronic neck & back pain, asking for stronger pain meds, given 1 tab norco, reassessed pt still having a lot of pain requesting additional pain med, Hospitalist notified, given additional 1 tab norco, pain level down to comfortable level.
[2016-04-19] MEDS: HYDROcodone-APAP 5-325 mg Tablet PO PRN ×4 (04:44→20:24)
[2016-04-19 05:59] LABS: BASOPHILS % (AUTO) 0.6 % (0-3); EOSINOPHILS % (AUTO) 12.4 % (0-5); MONOCYTES % (AUTO) 13.8 % (4-12); Mean Corpuscular Hemoglobin 30.3 pg (27.0-35.0); NEUTROPHILS % (AUTO) 46.1 % (40-74); Platelet Count 446 bil/L (150-400)
[2016-04-19 06:10] LABS: Magnesium 2.3 mg/dL (1.6-2.6); Phosphorus 3.3 mg/dL (2.5-4.9)
--- NOTE | 2016-04-19 07:55 | DRSVH ---
PROCEDURE: X-RAY CHEST ONE VIEW, PORTABLE ([id number]) INDICATIONS: pneumonia TECHNIQUE: One view of the chest was acquired. COMPARISON: [facility], CR, XR CHEST 1VW (PORTABLE), 04/16/2016, 18:08. FINDINGS: Surgical changes and devices: None. Lungs and pleura: No pleural effusions or pneumothorax. Lungs are abnormal with bilateral upper glenn g alveolar infiltration mild in severity. Mediastinum: Mediastinal contours appear normal. Heart size is normal. Bones and chest wall: No suspicious bony lesions. Overlying soft tissues appear unremarkable. IMPRESSION: Bilateral upper lung pneumonitis. Dictated by: Sanju Lazo M.D. on 04/19/2016 at 7:53 Approved by: Sanju Lazo M.D. on 04/19/2016 at 7:53
[2016-04-19] MEDS: PARoxetine 20 mg Tablet PO SCH (10:32)
[2016-04-19] MEDS: Heparin 5,000 Unit/mL Inj SUBQ SCH ×3 (10:32→23:21)
[2016-04-19] MEDS ORDERED: Albuterol-Ipratropium 3 mL Inhalation Solution NEB PRN (13:10)
--- NOTE | 2016-04-19 14:30 | PROG NOTE ---
[address] [address] PROGRESS NOTE PATIENT: JONES SANCHEZ : 1950 MR#: [id number] ADMIT: 04/16/2016 JOB ID: [id number] DATE: 04/19/2016 PULMONARY FOLLOWUP NOTE: PROBLEM: Pneumonia. SUBJECTIVE: Feeling better. Breathing more comfortably. However, she does feel somewhat weak and tired. Some cough productive of for the most part clear phlegm, occasionally yellow. No pleuritic chest pain, though chest is a bit sore from coughing. Appetite remains marginal, though is slightly improving. Bowels working well, with formed stool. OBJECTIVE: Temperature 36.8, pulse mid 80s, respiratory rate 15, blood pressure 124/81, O2 sat on 4.5 liters is 97%. I and O shows 2 liters in, 1.4 liters out. General appearance: A bit wan. More animated. Sparkle to her eye and more animated conversation. Speaking easily. Chest: Fair breath sounds bilaterally. There are crackles at both bases, extending somewhat up into the left mid lung field. Maybe a few crackles in the right mid lung field, but clear in the upper lung araujo on the right. Maybe a few crackles in the left apical lung field. Heart tones normal. Abdomen is soft. Bowel tones present. LABORATORY VALUES: Show a white count of 9700, down from 16,200. Forty-six polymorphonuclears, 26 lymphocytes, 13 monocytes, 12 eosinophils. Hemoglobin stable at 12.2. Platelet count rising at 446,000. Lytes are normal. Creatinine 0.47, slightly decreased, though consistent with her minimal muscle mass. Calcium 8.3. Phosphorus normal at 3.3. Magnesium normal at 2.3. Serology shows HIV nonreactive. ASSESSMENT: Oxygenation improving. Clinically she is doing better, with lessening symptomatology. Breathing much more easily. Oxygen needs less. Without an etiology at present. Given her improvement I think we can continue to watch her, though maybe some concerns about noninfectious etiology in light of her smoking history. PLAN: 1. Increase activity. Consider up in chair today. 2. Physical therapy regarding ambulation and strengthening.
--- NOTE | 2016-04-19 15:32 | PCM.PNMED ---
Subjective Date of Service Apr 19, 2016 Subjective 65-year-old generally healthy woman presents with 1 month of chronic progressive cough and dyspnea. She reports continued cough which is minimally productive of white phlegm. She reports significant dyspnea with minimal activity. He seems to be improving at rest. Exam Vital Signs Vital Sign - Last Date Time Temp Pulse Resp B/P Pulse Ox O2 Delivery O2 Flow Rate FiO2 04/19/16 12:44 36.8 82 16 124/81 97 Nasal Cannula 4.50 Intake and Output 04/18/16 04/18/16 04/19/16 Cumulative From/Thru 15:00 23:00 07:00 04/16/16 17:51 - 04/19/16 05:37 Intake Total 242 ml 1057 ml 880 ml 4717 ml Output Total 450 ml 800 ml 5110 ml Balance 242 ml 607 ml 80 ml -393 ml Intake Oral 1050 ml 800 ml 3810 ml IV Total 242 ml 7 ml 80 ml 907 ml Output Urine Total 450 ml 800 ml 5110 ml # Bowel Movements 3 0 5 Exam General: Thin but generally healthy-appearing woman speaking at length with nasal cannula oxygen only HEENT: sclerae anicteric, oral mucosa moist Neck: no JVD, supple Chest: Dry inspiratory crackles approximately one half bilaterally Cardiac: S1S2, no murmur Abdomen: non-tender, Extremities: No edema Neuro: A&O, cranial nerves symmetric, motor strength 5/5, coordination normal IVs and Medications Medications Reviewed: Medications were reviewed in detail Lab and Diagnostics Result Diagram: 04/19/16 0434 04/19/16 0434 Microbiology Nasopharyngeal swab: No chlamydia or mycoplasma; viral panel negative Sputum Gram stain - nonpurulent Influenza PCR negative Urinary strep pneumonia screen negative Blood cultures 2 negative from 04/16 . X-Rays, CTs and MRIs PROCEDURE: X-RAY CHEST ONE VIEW, PORTABLE ([id number]) INDICATIONS: chest pain TECHNIQUE: One view of the chest was acquired. COMPARISON: [facility], , CHEST 2 VIEW, 12/11/2015, 3:08. FINDINGS: Surgical changes and devices: None. Lungs and pleura: No pleural effusions or pneumothorax. Lungs are clear. Lungs are hyperinflated suggesting COPD. Please correlate with clinical data. Mediastinum: Mediastinal contours appear normal. Heart size is normal. Bones and chest wall: No suspicious bony lesions. Overlying soft tissues appear unremarkable. IMPRESSION: No acute cardiopulmonary disease process. Additional Diagnostics PROCEDURE: CT ANGIO CHEST PULMONARY EMBOLISM ([id number]) INDICATIONS: hypoxia, elevated D-Dimer COMPARISON: None. FINDINGS: Image quality: Excellent. Pulmonary arteries: Pulmonary arteries are normal in size, and demonstrate no intraluminal filling defects to suggest central pulmonary embolism. Lungs and pleura: Groundglass opacities noted in the upper lobes bilaterally. Groundglass opacity is nonspecific but can be related to pneumonia or pulmonary edema. Alveolar opacities noted in the lung bases bilaterally which could represent pneumonia or pulmonary edema. There is a 5 mm solid nodule in the left lower lobe. No pleural effusions. No pleural effusions or pneumothorax. Central and peripheral airways are patent. Mediastinum: Heart size is normal, without pericardial effusion. 1.4 cm right hilar lymph node is noted. 1.1 cm precarinal mediastinal lymph node is noted. Large aortopulmonary window mediastinal lymph nodes are noted with largest node measuring 1.2 cm in short axis. Thoracic aorta is normal in caliber and enhancement moderate-sized hiatal hernia is noted. Bones and chest wall: No suspicious bony lesions. Ribs and thoracic spine appear intact throughout. Thyroid gland is within normal limits. No axillary or supraclavicular adenopathy. Abdomen: Gallstones are noted visualized portion of the gallbladder Limited evaluation of the upper abdomen is otherwise within normal limits.. IMPRESSION: 1. No pulmonary embolus. 2. Groundglass opacities in upper lobes and alveolar opacities in the lung bases. Findings are nonspecific, but can be related to pneumonia or pulmonary edema. Please correlate with clinical and laboratory data. 3. Right hilar and mediastinal lymphadenopathy which be reactive or neoplastic. 4. 5 mm, solid left lower lobe lung nodule. Recommend followup CT scan of the chest based on criteria outlined below. 5. Cholelithiasis. Assessment & Plan 65 year old female with 4 weeks of progressive cough and dyspnea presents with acute respiratory failure with hypoxia Acute and/or high-risk problems: # Systemic inflammatory syndrome, acute. Respiratory rate was 22, heart rate was 106, white blood cell count 13.2 on admission. Inflammatory markers are elevated Clinical impression is atypical pulmonary infectious or autoimmune process. She continues intermittently tachycardic and tachypnea but is not clinically septic. - Vital signs with supportive measures - Monitor urine output and maintain hydration Acute Hypoxic Respiratory Failure. Room air oxygenation 83% on admission. X- ray without infiltrate. Chest CT with interstitial process, mediastinal adenopathy. Absolute eosinophils are increased. Likely atypical pulmonary infection, not CAP, but PCR for typical pathogens is negative. - Antibiotics as per infectious disease computer systems consultant - azithromycin at present, ceftriaxone discontinued due to lack of evidence of typical CAP - Continue current oxygen support; wean as tolerated - Ambulate patient as much as possible Resolved, chronic, and/or stable problems: H/o Splenectomy, POA - No evidence of infection with encapsulated organism H/o PTSD, POA -Plan to continue Paxil 20mg daily H/o Chronic LBP, POA -Plan to continue patient's Gabapentin 300mg TID H/o Menopausal symptoms, POA - Continue Estradiol H/o IBS, POA -Will continue patient's Dicyclomine Incidental Pulmonary Nodule -5mm nodule at LLL found. Recommend follow up as outpatient as appropriate for approximately [id number] smoking history VTE Prophylaxis: Sub-Q Heparin (Unfractionated) VTE Mechanical Devices: Intermittant Pneumatic CD Resuscitation Status: CPR: Attempt Resuscitation Time spent 30 minutes Logan Sotelo MD Apr 19, 2016 15:32
--- NOTE | 2016-04-19 18:25 | NUR ---
Oxygenation/Anxiety Patient alert and oriented x3 throughout shift, PARRA, up independently to BSC and tolerating well. Patient does report some SOB with exertion, stating "I'm not sure I feel up to walking all the way to the bathroom". Patient currently on 4.5L NC with SPO2 at 95%. No reports of n/v/d/c or abdominal pain. Normal formed stool this AM. Patient was tearful upon entering the room in the afternoon, stating "I just feel emotionally drained". Patient constantly apologizing throughout shift despite encouragement and reassurance. Hydrocodone given q4 x2 PRN, seemed to help slightly.
[2016-04-19] MEDS: Fluticasone 0.05% 15 Spray/2 Gm 16 Gm Nasal Spray NASAL SCH (20:04)
[2016-04-19] MEDS: Benzocaine-Menthol Lozenge 2/Pkg PO PRN (20:25)
[2016-04-20] VITALS (8 sets, daily range): BP systolic 106–129; BP diastolic 70–89; PULSE 88–114; RESP 20–24; O2SAT 92–95
--- NOTE | 2016-04-20 01:52 | NUR ---
resp status a/o times three, yolanda, coop but somewhat anxious, [place], up to bsc with sba, pt's at bedside reading a book to her during the evening, ls-clear anteriorly, posterior bilateral ll rhonchi, upper lobes posteriorly clear after coughing, ant clear, hob up, resp rate 20-24, sob noted with exertion, four liters o2 per nc -sats mid to upper 90's, pt desats down to 85% if she removes her o2, pt intermittently blowing her nose with sml amount of blood tinged drainage, pt aware of need for am sputum, specimen cup at bedside, tele- sr/st, hr 90's to 1.5, bp stable, afebrile, denies cp denies n/v, pt given pain meds for c/o upper back pain, pt aware pain meds are ordered as needed not scheduled and to ask if she would like more later in the shift, tessalon pearls given per pt request at hs also along with nicoderm patch change, heating pad to upper back also, all helpful, no more requests for meds at this point, will continue to monitor, see assessment charting, continue monitoring, plan:resp care and improvement,
--- NOTE | 2016-04-20 05:33 | NUR ---
transfer of care at 0445 report given to pcc rn, aware of need for am sputum spec and i/o
[2016-04-20 09:08] LABS: Angiotensin-Converting Enzyme 46 U/L (14-82)
[2016-04-20] MEDS: Fluticasone 0.05% 15 Spray/2 Gm 16 Gm Nasal Spray NASAL SCH ×2 (09:22→20:37)
[2016-04-20] MEDS: PARoxetine 20 mg Tablet PO SCH (09:28)
[2016-04-20] MEDS: Heparin 5,000 Unit/mL Inj SUBQ SCH ×3 (09:29→23:34)
[2016-04-20] MEDS: HYDROcodone-APAP 5-325 mg Tablet PO PRN ×3 (10:02→20:42)
--- NOTE | 2016-04-20 10:22 | PROG NOTE ---
[address] [address] PROGRESS NOTE PATIENT: JONES SANCHEZ : 1950 MR#: [id number] ADMIT: 04/16/2016 JOB ID: [id number] DATE: 04/20/2016 REASON FOR FOLLOWUP: Bilateral pneumonitis of unknown etiology in an ex-smoker. INTERVAL HISTORY: Recall that on Wednesday, the , we were originally consulted on this case. The question raised was the etiology of her bilateral ground-glass infiltrates which are predominantly in the upper lobe and whether or not infection might be involved. At that time, we are recommending continued azithromycin for a possible atypical process, but to go ahead and discontinue the ceftriaxone. We also requested a wide variety of studies to attempt and look for a cause of interstitial pneumonitis. Over the weekend, the patient has continued to be short of breath. She thinks she is somewhat better, but she still on 4 L nasal prongs and is almost as short of breath at rest and certainly short of breath with any exertion. She has no fevers, chills, or cough and no significant sputum production. We again reviewed her travel history in great detail. She has never traveled to the developing world and has traveled to the counts include 234 beds at the [facility], but more than 2 decades ago. No recent travel or unusual exposures. PHYSICAL EXAMINATION: Reveals an afebrile woman, temp 37, pulse 114, respiratory rate 20, blood pressure 121/76, saturating well on 4 L, but mildly short of breath. Oral cavity negative. Lungs: A few crackles at the left mid lung field posteriorly otherwise reasonably clear with fair air flow bilaterally. Cardiac tones without murmur. No skin rash noted. Abdomen benign. LABORATORIES: Include a white count which has dropped from 13,000 on admission down to 9000. Of interest, she has developed a pronounced eosinophilia initially she had 3% eosinophilia and now 12%. Creatinine 0.47. Pro calcitonin 0.4. Angiotensin converting enzyme normal at 46. CRP is a whopping 34 which is 68 times normal and indicates a tremendously inflammatory state. Urinalysis negative. Crypto antigen negative. HIV and hepatitis C negative. Urine Legionella and pneumococcal antigens negative. Blood cultures negative and respiratory viral PCR negative. A repeat chest x-ray done on the showed bilateral upper lobe pneumonitis which the radiologist characterized as mild in severity on the chest radiograph. IMPRESSION: This is an interesting case of a woman with bilateral interstitial infiltrates and hypoxia. She is now developing an eosinophilia, but it is not clear to me if this is due to the ceftriaxone or azithromycin or some other drugs she has received here in the hospital or whether it is part of her underlying problem. 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 At this point, I see little evidence for infection and we await the multiple studies that were previously ordered. Of note, the patient has not had any of her AF[employer] samples collected which we ordered on Wednesday so will have to double check and see what is happening there, but I suspect they are not collecting samples because she has no productive sputum. Bronchoscopy may eventually be indicated. RECOMMENDATIONS: 1. I would continue with azithromycin through tomorrow April 21, and then stop. 2. We await the multiple studies that have been ordered, and we will try and see if the AFB sputums can be collected. 3. Will discuss this case with Pulmonary later today, but I think we may soon be moving to a situation where bronchoscopy and/or lung biopsy is indicated.
--- NOTE | 2016-04-20 11:17 | PCM.PNMED ---
Subjective Date of Service Apr 20, 2016 Subjective PULMONARY PROGRESS NOTE Overnight: No acute events reported; Tolerating NC well. Today: States that she is doing fairly well, with the exception that she does not feel energized; reports feeling fatigued with occasional SOB. Denies any CP. Reports pain that is chronic. Has not been up and about. Exam Vital Signs Vital Sign - Last Date Time Temp Pulse Resp B/P Pulse Ox O2 Delivery O2 Flow Rate FiO2 04/20/16 09:49 Supplement Oxygen 04/20/16 09:45 37.0 114 121/76 94 4.00 04/20/16 03:33 24 Intake and Output 04/19/16 04/19/16 04/20/16 Cumulative From/Thru 15:00 23:00 07:00 04/16/16 17:51 - 04/20/16 06:42 Intake Total 1540 ml 850 ml 7107 ml Output Total 700 ml 1200 ml 7010 ml Balance 840 ml -350 ml 97 ml Intake Oral 1540 ml 850 ml 6200 ml IV Total 907 ml Output Urine Total 700 ml 1200 ml 7010 ml # Bowel Movements 1 6 Exam General: Resting in bed, resting comfortably, no acute distress HENT: Atraumatic, sclera anicteric, mucus membranes dry; NC in place Neck: Soft, trachea midline Cardiac: Regular rate/rhythm; nio murmurs appreciated at time of examination Respiratory: Adequate air flow all araujo, without wheeze or coarse sounds Extremities: Thin, no edema Pulses: Radial equal and bilateral Skin: Warm and dry Neuro: CNII-XII grossly intact; Facial expressions symmetric; speech normal Psych: Appropriate mood, affect, and responses to questioning; alert and oriented Lab and Diagnostics Result Diagram: 04/19/1643304/19/16433 Microbiology Nasopharyngeal swab: No chlamydia or mycoplasma; viral panel negative Sputum Gram stain - nonpurulent Influenza PCR negative Urinary strep pneumonia screen negative Blood cultures 2 negative from 04/16 . X-Rays, CTs and MRIs PROCEDURE: X-RAY CHEST ONE VIEW, PORTABLE ([id number]) INDICATIONS: chest pain TECHNIQUE: One view of the chest was acquired. COMPARISON: [facility], , CHEST 2 VIEW, 12/11/2015, 3:08. FINDINGS: Surgical changes and devices: None. Lungs and pleura: No pleural effusions or pneumothorax. Lungs are clear. Lungs are hyperinflated suggesting COPD. Please correlate with clinical data. Mediastinum: Mediastinal contours appear normal. Heart size is normal. Bones and chest wall: No suspicious bony lesions. Overlying soft tissues appear unremarkable. IMPRESSION: No acute cardiopulmonary disease process. Additional Diagnostics PROCEDURE: CT ANGIO CHEST PULMONARY EMBOLISM ([id number]) INDICATIONS: hypoxia, elevated D-Dimer COMPARISON: None. FINDINGS: Image quality: Excellent. Pulmonary arteries: Pulmonary arteries are normal in size, and demonstrate no intraluminal filling defects to suggest central pulmonary embolism. Lungs and pleura: Groundglass opacities noted in the upper lobes bilaterally. Groundglass opacity is nonspecific but can be related to pneumonia or pulmonary edema. Alveolar opacities noted in the lung bases bilaterally which could represent pneumonia or pulmonary edema. There is a 5 mm solid nodule in the left lower lobe. No pleural effusions. No pleural effusions or pneumothorax. Central and peripheral airways are patent. Mediastinum: Heart size is normal, without pericardial effusion. 1.4 cm right hilar lymph node is noted. 1.1 cm precarinal mediastinal lymph node is noted. Large aortopulmonary window mediastinal lymph nodes are noted with largest node measuring 1.2 cm in short axis. Thoracic aorta is normal in caliber and enhancement moderate-sized hiatal hernia is noted. Bones and chest wall: No suspicious bony lesions. Ribs and thoracic spine appear intact throughout. Thyroid gland is within normal limits. No axillary or supraclavicular adenopathy. Abdomen: Gallstones are noted visualized portion of the gallbladder Limited evaluation of the upper abdomen is otherwise within normal limits.. IMPRESSION: 1. No pulmonary embolus. 2. Groundglass opacities in upper lobes and alveolar opacities in the lung bases. Findings are nonspecific, but can be related to pneumonia or pulmonary edema. Please correlate with clinical and laboratory data. 3. Right hilar and mediastinal lymphadenopathy which be reactive or neoplastic. 4. 5 mm, solid left lower lobe lung nodule. Recommend followup CT scan of the chest based on criteria outlined below. 5. Cholelithiasis. Assessment & Plan The patient was seen and examined together with Dr. Sindy Giles on 04/20/16 and I agree with the history, exam and plan as outlined in the note above. PULMONARY PROGRESS NOTE Acute respiratory failure, present on admission. Improving - Decreasing O2 requirements; continue to wean as tolerated - Increase ambulation; Up to chair with meals + activity as tolerated -diffuse abnormalities on imaging suggest atypical or noninfectious cause for her acute hypoxemic respiratory failure, eg alveolar hemorrhage, HP, inhalation injury from vape, etc Suspected community acquired PNA, acute, present on admission. Under investigation - Initial thought was undiagnosed and progressed influenza with superimposed bacterial infection - Many viral and bacterial studies negative - ID following; appreciate recommendations - Repeat CXR in am - Consideration of bronchoscopy if no improvements over next 1-2 days Tobacco use disorder, chronic. Ongoing - Continued counseling Thank you for this consult, we will happily follow along with you. Total time: 30 minutes Pain Evaluation: Adequate Pain Control VTE Prophylaxis: Sub-Q Heparin (Unfractionated) VTE Mechanical Devices: Intermittant Pneumatic CD Resuscitation Status: CPR: Attempt Resuscitation Kimberly Giles DO Apr 20, 2016 11:17 Gabe Jimenez MD Apr 20, 2016 15:40
[2016-04-20] MEDS: Benzocaine-Menthol Lozenge 2/Pkg PO PRN ×2 (15:13→23:34)
--- NOTE | 2016-04-20 15:26 | NUR ---
pts O2 sats were assesed. She is 85% at rest on room air. O2 sats 94% on 5 liters, she required 6 liters to ambulate and to keep her O2 SATS at 92% with ambulation.
--- NOTE | 2016-04-20 15:42 | NUR ---
took over patient care at 3pm
--- NOTE | 2016-04-20 16:54 | PCM.PNMED ---
Subjective Date of Service Apr 20, 2016 Subjective 65-year-old generally healthy woman presents with 1 month of chronic progressive cough and dyspnea. She reports continued cough which is minimally productive of white phlegm. She reports significant dyspnea with minimal activity. She requirements have declined to approximately 4 L at rest, 6 L with walking to achieve O2 sat 92%.. Subjectively the patient feels minimally improved. Exam Vital Signs Vital Sign - Last Date Time Temp Pulse Resp B/P Pulse Ox O2 Delivery O2 Flow Rate FiO2 04/20/16 15:52 36.6 100 20 106/70 95 Nasal Cannula 4.00 Intake and Output 04/19/16 04/19/16 04/20/16 Cumulative From/Thru 15:00 23:00 07:00 04/16/16 17:51 - 04/20/16 06:42 Intake Total 1540 ml 850 ml 7107 ml Output Total 700 ml 1200 ml 7010 ml Balance 840 ml -350 ml 97 ml Intake Oral 1540 ml 850 ml 6200 ml IV Total 907 ml Output Urine Total 700 ml 1200 ml 7010 ml # Bowel Movements 1 6 Exam General: Thin but generally healthy-appearing woman speaking comfortably without labored breathing HEENT: sclerae anicteric, oral mucosa moist Neck: no JVD, supple Chest: Dry inspiratory crackles approximately one third bilaterally Cardiac: S1S2, no murmur Abdomen: non-tender, Extremities: No edema Neuro: A&O, cranial nerves symmetric, motor strength 5/5, coordination normal IVs and Medications Medications Reviewed: Medications were reviewed in detail Lab and Diagnostics Result Diagram: 04/19/1643304/19/16 043 Microbiology Nasopharyngeal swab: No chlamydia or mycoplasma; viral panel negative Sputum Gram stain - nonpurulent Influenza PCR negative Urinary strep pneumonia screen negative Blood cultures 2 negative from 04/16 . X-Rays, CTs and MRIs PROCEDURE: X-RAY CHEST ONE VIEW, PORTABLE ([id number]) INDICATIONS: chest pain TECHNIQUE: One view of the chest was acquired. COMPARISON: [facility], , CHEST 2 VIEW, 12/11/2015, 3:08. FINDINGS: Surgical changes and devices: None. Lungs and pleura: No pleural effusions or pneumothorax. Lungs are clear. Lungs are hyperinflated suggesting COPD. Please correlate with clinical data. Mediastinum: Mediastinal contours appear normal. Heart size is normal. Bones and chest wall: No suspicious bony lesions. Overlying soft tissues appear unremarkable. IMPRESSION: No acute cardiopulmonary disease process. Additional Diagnostics PROCEDURE: CT ANGIO CHEST PULMONARY EMBOLISM ([id number]) INDICATIONS: hypoxia, elevated D-Dimer COMPARISON: None. FINDINGS: Image quality: Excellent. Pulmonary arteries: Pulmonary arteries are normal in size, and demonstrate no intraluminal filling defects to suggest central pulmonary embolism. Lungs and pleura: Groundglass opacities noted in the upper lobes bilaterally. Groundglass opacity is nonspecific but can be related to pneumonia or pulmonary edema. Alveolar opacities noted in the lung bases bilaterally which could represent pneumonia or pulmonary edema. There is a 5 mm solid nodule in the left lower lobe. No pleural effusions. No pleural effusions or pneumothorax. Central and peripheral airways are patent. Mediastinum: Heart size is normal, without pericardial effusion. 1.4 cm right hilar lymph node is noted. 1.1 cm precarinal mediastinal lymph node is noted. Large aortopulmonary window mediastinal lymph nodes are noted with largest node measuring 1.2 cm in short axis. Thoracic aorta is normal in caliber and enhancement moderate-sized hiatal hernia is noted. Bones and chest wall: No suspicious bony lesions. Ribs and thoracic spine appear intact throughout. Thyroid gland is within normal limits. No axillary or supraclavicular adenopathy. Abdomen: Gallstones are noted visualized portion of the gallbladder Limited evaluation of the upper abdomen is otherwise within normal limits.. IMPRESSION: 1. No pulmonary embolus. 2. Groundglass opacities in upper lobes and alveolar opacities in the lung bases. Findings are nonspecific, but can be related to pneumonia or pulmonary edema. Please correlate with clinical and laboratory data. 3. Right hilar and mediastinal lymphadenopathy which be reactive or neoplastic. 4. 5 mm, solid left lower lobe lung nodule. Recommend followup CT scan of the chest based on criteria outlined below. 5. Cholelithiasis. Assessment & Plan 65 year old female with 4 weeks of progressive cough and dyspnea presents with acute respiratory failure with hypoxia Acute and/or high-risk problems: # Systemic inflammatory syndrome, acute. Respiratory rate was 22, heart rate was 106, white blood cell count 13.2 on admission. Inflammatory markers are elevated Clinical impression is atypical pulmonary infectious or autoimmune process. She continues intermittently tachycardic and tachypnea but is not clinically septic. - Vital signs with supportive measures - Monitor urine output and maintain hydration Acute Hypoxic Respiratory Failure. Room air oxygenation 83% on admission. Initially she required 13 L oxygen support. X-ray without infiltrate. Chest CT with interstitial process, mediastinal adenopathy. Absolute eosinophils are increased. Likely atypical pulmonary infection, not CAP, but PCR for typical pathogens is negative. Treated with ceftriaxone and azithromycin initially, ceftriaxone discontinued after 2 days. Chest auscultation and oxygen requirement are showing steady improvement - Antibiotics as per infectious disease consultant internship - azithromycin at present - Continue current oxygen support; wean as tolerated - Ambulate patient as much as possible Resolved, chronic, and/or stable problems: H/o Splenectomy, POA - No evidence of infection with encapsulated organism H/o PTSD, POA -Plan to continue Paxil 20mg daily H/o Chronic LBP, POA -Plan to continue patient's Gabapentin 300mg TID H/o Menopausal symptoms, POA - Continue Estradiol H/o IBS, POA -Will continue patient's Dicyclomine Incidental Pulmonary Nodule -5mm nodule at LLL found. Recommend follow up as outpatient as appropriate for approximately [id number]-[id number] smoking history VTE Prophylaxis: Sub-Q Heparin (Unfractionated) VTE Mechanical Devices: Intermittant Pneumatic CD Resuscitation Status: CPR: Attempt Resuscitation Time spent 30 minutes Logan Sotelo MD Apr 20, 2016 16:54
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
[2016-04-20] MEDS: guaiFENesin 600 mg ER12 Tablet PO PRN (23:35)
[2016-04-21] VITALS (9 sets, daily range): BP systolic 100–120; BP diastolic 68–81; PULSE 83–115; RESP 16–20; O2SAT 86–95
[2016-04-21] MEDS: HYDROcodone-APAP 5-325 mg Tablet PO PRN ×6 (00:57→21:45)
--- NOTE | 2016-04-21 05:27 | NUR ---
Respiratory / Pain / Tele O2 @ 4L NC, SpO2 sats 92%. Pt has intermittent coughing with small amount of clear sputum noted. Pt medicated with Guaifensin tabs X2, and coughing bouts greatly reduced. Pt c/o back pain 6 to 10/12, Medicated with 2 [place] tabs about every 4 hours during the night, along with K-Pad and chemical heat packs to back and neck, with good temporary relief of pain. No c/o chest pain, Tele SR with occ PVCs. and Therapy Dog Giget in room at bedside all night.
[2016-04-21] MEDS: Fluticasone 0.05% 15 Spray/2 Gm 16 Gm Nasal Spray NASAL SCH ×2 (09:16→20:30)
[2016-04-21] MEDS: PARoxetine 20 mg Tablet PO SCH (09:17)
[2016-04-21] MEDS: Heparin 5,000 Unit/mL Inj SUBQ SCH ×2 (09:23→15:57)
--- NOTE | 2016-04-21 10:14 | PROG NOTE ---
[address] PROGRESS NOTE PATIENT: JONES SANCHEZ : 1950 MR#: [id number] ADMIT: 04/16/2016 JOB ID: [id number] DATE: 04/21/2016 REASON FOR FOLLOWUP: Bilateral interstitial pulmonary infiltrates with recent onset dyspnea on exertion and hypoxia. INTERVAL HISTORY: The patient reports no fevers, chills, or sweats. She has minimal dry cough, though she was able to produce 1 sputum sample which the lab has accepted for an AFB smear and culture to look for MAC. She notes she is short of breath a little bit at rest and more with exertion. It is unclear to her at this point if this is gotten better during the almost 6 days now she has been in the hospital. No GI or other new symptoms. No skin rash. PHYSICAL EXAMINATION: Reveals an afebrile woman in no acute distress. T 37.1, temp 94, respiratory rate 16 to 18. She is on 4 L but only saturating about 91% at rest. Blood pressure 100/68. Mental status sharp. Oral cavity negative. Lungs relatively clear posteriorly even with deep inspiration. Cardiac tones without murmur. No change in the abdominal or skin exam. LABORATORIES: Include a white count 9700, but that has not been repeated for 2 days. Likewise creatinine 0.47 two days ago. Cryptococcal antigen is negative. Hep C and HIV negative. QuantiFERON Gold is still pending. AFB smears sputum is pending. Respiratory viral PCR is negative and blood cultures negative. Today's chest x-ray is not formally been read by Radiology, but when I look at this x-ray and compare it to the film on the it actually appears to be clearing. Recall this is a patient who also had a CT scan of the chest early in this hospital stay which showed bilateral interstitial changes. IMPRESSION: This case was discussed at the bedside with Dr. Jaren Sotelo who is the attending physician. We believe the patient is slowly improving both clinically and radiographically though the change has been quite slow. There is little here to indicate an active bacterial process, and I wonder if this is a viral or postviral response or perhaps some mild form of hypersensitivity pneumonitis in this woman who probably has underlying chronic obstructive pulmonary disease based on her smoking history and chest x-ray appearance. RECOMMENDATIONS: 1. We go ahead and discontinue the azithromycin after today's dose as she has received now 5 or 6 days of azithromycin which should be adequate to treat any "atypical infection". 2. I would continue to observe this patient in the hospital and perhaps to get her up and moving a little bit more and see if we can increase her exercise capacity or conversely start to reduce her nasal oxygen support and see whether she has truly improved with respect to this process. It seems more likely than not, this is an acute process which is going to resolve over some period of days or a couple weeks rather than fixed interstitial pneumonitis which is going to require bronchoscopy with lung biopsy to make a final diagnosis.
--- NOTE | 2016-04-21 10:19 | DRSVH ---
PROCEDURE: X-RAY CHEST, TWO VIEWS ([id number]) INDICATIONS: SHORTNESS OF BREATH TECHNIQUE: 2 views of the chest were acquired. COMPARISON: [facility], CR, XR CHEST 1VW (PORTABLE), 04/16/2016, 18:08. [facility], CR, XR CHEST 1VW (PORTABLE), 04/19/2016, 4:57. FINDINGS: Surgical changes and devices: None. Lungs and pleura: Diffuse, widespread bilateral interstitial opacities decreased from prior examinati on but not resolved. Prominent nipple shadows redemonstrated. Mediastinum: Mediastinal contours are normal. Heart size is normal. Bones and chest wall: No suspicious bony abnormalities. Soft tissues appear unremarkable. IMPRESSION: Decrease in interstitial opacities consistent with resolving pulmonary edema and/or diffu se bilateral pneumonia. Dictated by: Jaren Ramos [facility] Interpreted: Luna Sultana MD on 04/21/2016 at 10:18 Transcribed by: ABHILASH on 04/21/2016 at 10:18 Approved by: Luna Sultana M.D. on 04/21/2016 at 16:16
--- NOTE | 2016-04-21 11:29 | PCM.PNMED ---
Subjective Date of Service Apr 21, 2016 Subjective PULMONARY PROGRESS NOTE Overnight: No acute events Today: Resting comfortably in bed. Reports improved breathing, but is still requiring supplemental oxygen. Denied SOB, CP, n/v, f/c. States some pain along left scapula that is intermittent, dull. K-pad in place, reports some relief. Exam Vital Signs Vital Sign - Last Date Time Temp Pulse Resp B/P Pulse Ox O2 Delivery O2 Flow Rate FiO2 04/21/16 09:10 37.1 94 16 100/68 91 Nasal Cannula 4.00 Intake and Output 04/20/16 04/20/16 04/21/16 Cumulative From/Thru 15:00 23:00 07:00 04/16/16 17:51 - 04/21/16 06:02 Intake Total 1040 ml 450 ml 8597 ml Output Total 1050 ml 500 ml 8560 ml Balance -10 ml -50 ml 37 ml Intake Oral 1040 ml 450 ml 7690 ml IV Total 907 ml Output Urine Total 1050 ml 500 ml 8560 ml # Bowel Movements 0 6 Exam General: Resting in bed, resting comfortably, no acute distress HENT: Atraumatic, sclera anicteric, mucus membranes dry; NC in place Neck: Soft, trachea midline Cardiac: Regular rate/rhythm; no murmurs appreciated at time of examination Respiratory: Adequate air flow all araujo, without wheeze or coarse sounds Extremities: Thin, no edema MSK: Pressure tenderness located medial left scapula; no redness or obvious trauma noted Pulses: Radial equal and bilateral Skin: Warm and dry Neuro: CNII-XII grossly intact; Facial expressions symmetric; speech normal Psych: Appropriate mood, affect, and responses to questioning; alert and oriented Lab and Diagnostics Result Diagram: 04/19/1643304/19/16433 Microbiology Nasopharyngeal swab: No chlamydia or mycoplasma; viral panel negative Sputum Gram stain - nonpurulent Influenza PCR negative Urinary strep pneumonia screen negative Blood cultures 2 negative from 04/16 . X-Rays, CTs and MRIs PROCEDURE: X-RAY CHEST ONE VIEW, PORTABLE ([id number]) INDICATIONS: chest pain TECHNIQUE: One view of the chest was acquired. COMPARISON: [facility], , CHEST 2 VIEW, 12/11/2015, 3:08. FINDINGS: Surgical changes and devices: None. Lungs and pleura: No pleural effusions or pneumothorax. Lungs are clear. Lungs are hyperinflated suggesting COPD. Please correlate with clinical data. Mediastinum: Mediastinal contours appear normal. Heart size is normal. Bones and chest wall: No suspicious bony lesions. Overlying soft tissues appear unremarkable. IMPRESSION: No acute cardiopulmonary disease process. Additional Diagnostics PROCEDURE: CT ANGIO CHEST PULMONARY EMBOLISM ([id number]) INDICATIONS: hypoxia, elevated D-Dimer COMPARISON: None. FINDINGS: Image quality: Excellent. Pulmonary arteries: Pulmonary arteries are normal in size, and demonstrate no intraluminal filling defects to suggest central pulmonary embolism. Lungs and pleura: Groundglass opacities noted in the upper lobes bilaterally. Groundglass opacity is nonspecific but can be related to pneumonia or pulmonary edema. Alveolar opacities noted in the lung bases bilaterally which could represent pneumonia or pulmonary edema. There is a 5 mm solid nodule in the left lower lobe. No pleural effusions. No pleural effusions or pneumothorax. Central and peripheral airways are patent. Mediastinum: Heart size is normal, without pericardial effusion. 1.4 cm right hilar lymph node is noted. 1.1 cm precarinal mediastinal lymph node is noted. Large aortopulmonary window mediastinal lymph nodes are noted with largest node measuring 1.2 cm in short axis. Thoracic aorta is normal in caliber and enhancement moderate-sized hiatal hernia is noted. Bones and chest wall: No suspicious bony lesions. Ribs and thoracic spine appear intact throughout. Thyroid gland is within normal limits. No axillary or supraclavicular adenopathy. Abdomen: Gallstones are noted visualized portion of the gallbladder Limited evaluation of the upper abdomen is otherwise within normal limits.. IMPRESSION: 1. No pulmonary embolus. 2. Groundglass opacities in upper lobes and alveolar opacities in the lung bases. Findings are nonspecific, but can be related to pneumonia or pulmonary edema. Please correlate with clinical and laboratory data. 3. Right hilar and mediastinal lymphadenopathy which be reactive or neoplastic. 4. 5 mm, solid left lower lobe lung nodule. Recommend followup CT scan of the chest based on criteria outlined below. 5. Cholelithiasis. Assessment & Plan PULMONARY PROGRESS NOTE Acute respiratory failure, present on admission. Improving - Decreasing O2 requirements; continue to wean as tolerated - Increase ambulation; Up to chair with meals + activity as tolerated - Diffuse abnormalities on imaging suggest atypical or noninfectious cause for her acute hypoxemic respiratory failure, eg alveolar hemorrhage, HP, inhalation injury from vape, etc.; resolving - Will continue to monitor throughout her stay - Repeat CXR in 48h if she remains in-house - May require O2 at DC; consider arrange home O2 order as DC is determined - Recommend outpatient pulmonary FU in one month for assessment and repeat imaging Suspected community acquired PNA, acute, present on admission. Under investigation - Initial thought was undiagnosed and progressed influenza with superimposed bacterial infection - Many viral and bacterial studies negative - ID following; appreciate recommendations - Repeat CXR in am - Consideration of bronchoscopy was discussed, does not appear to be necessary at this time secondary to improvements in imaging and sx Tobacco use disorder, chronic. Ongoing - Continued counseling - Recommend cessation, including the cessation of vaporized techniques and materials Thank you for this consult, we will happily follow along with you. Current recommendations as noted above. Total time: 30 minutes VTE Prophylaxis: Sub-Q Heparin (Unfractionated) VTE Mechanical Devices: Intermittant Pneumatic CD Resuscitation Status: CPR: Attempt Resuscitation Kimberly Giles DO Apr 21, 2016 11:29
--- NOTE | 2016-04-21 13:54 | NUR ---
Transfer to [facility] [place] Pt transferred to room 246 in [facility] [place]. Report given to Sherie KILPATRICK. Pt belongings gathered with and transported with pt to her new room.
--- NOTE | 2016-04-21 14:47 | PCM.PNMED ---
Subjective Date of Service Apr 21, 2016 Subjective 65-year-old generally healthy woman presents with 1 month of chronic progressive cough and dyspnea. She reports continued cough which is minimally productive of white phlegm. She continues to report dyspnea with minimal activity. She requirements have declined to approximately 4 L at rest, 6 L with walking to achieve O2 sat 92%.. Subjectively the patient feels minimally improved. Exam Vital Signs Vital Sign - Last Date Time Temp Pulse Resp B/P Pulse Ox O2 Delivery O2 Flow Rate FiO2 04/21/16 12:11 36.9 115 20 116/80 92 Nasal Cannula 4.00 Intake and Output 04/20/16 04/20/16 04/21/16 Cumulative From/Thru 15:00 23:00 07:00 04/16/16 17:51 - 04/21/16 06:02 Intake Total 1040 ml 450 ml 8597 ml Output Total 1050 ml 500 ml 8560 ml Balance -10 ml -50 ml 37 ml Intake Oral 1040 ml 450 ml 7690 ml IV Total 907 ml Output Urine Total 1050 ml 500 ml 8560 ml # Bowel Movements 0 6 Exam General: Thin, generally healthy-appearing woman speaking comfortably without labored breathing HEENT: sclerae anicteric, oral mucosa moist Neck: no JVD, supple Chest: Dry inspiratory crackles bibasilar Cardiac: S1S2, no murmur Abdomen: non-tender, Extremities: No edema Neuro: A&O, cranial nerves symmetric, motor strength and coordination normal IVs and Medications Medications Reviewed: Medications were reviewed in detail Lab and Diagnostics Result Diagram: 04/19/1643304/19/16 043 Microbiology Nasopharyngeal swab: No chlamydia or mycoplasma; viral panel negative Sputum Gram stain - nonpurulent Influenza PCR negative Urinary strep pneumonia screen negative Blood cultures 2 negative from 04/16 . X-Rays, CTs and MRIs PROCEDURE: X-RAY CHEST ONE VIEW, PORTABLE ([id number]) INDICATIONS: chest pain TECHNIQUE: One view of the chest was acquired. COMPARISON: [facility], , CHEST 2 VIEW, 12/11/2015, 3:08. FINDINGS: Surgical changes and devices: None. Lungs and pleura: No pleural effusions or pneumothorax. Lungs are clear. Lungs are hyperinflated suggesting COPD. Please correlate with clinical data. Mediastinum: Mediastinal contours appear normal. Heart size is normal. Bones and chest wall: No suspicious bony lesions. Overlying soft tissues appear unremarkable. IMPRESSION: No acute cardiopulmonary disease process. Additional Diagnostics PROCEDURE: CT ANGIO CHEST PULMONARY EMBOLISM ([id number]) INDICATIONS: hypoxia, elevated D-Dimer COMPARISON: None. FINDINGS: Image quality: Excellent. Pulmonary arteries: Pulmonary arteries are normal in size, and demonstrate no intraluminal filling defects to suggest central pulmonary embolism. Lungs and pleura: Groundglass opacities noted in the upper lobes bilaterally. Groundglass opacity is nonspecific but can be related to pneumonia or pulmonary edema. Alveolar opacities noted in the lung bases bilaterally which could represent pneumonia or pulmonary edema. There is a 5 mm solid nodule in the left lower lobe. No pleural effusions. No pleural effusions or pneumothorax. Central and peripheral airways are patent. Mediastinum: Heart size is normal, without pericardial effusion. 1.4 cm right hilar lymph node is noted. 1.1 cm precarinal mediastinal lymph node is noted. Large aortopulmonary window mediastinal lymph nodes are noted with largest node measuring 1.2 cm in short axis. Thoracic aorta is normal in caliber and enhancement moderate-sized hiatal hernia is noted. Bones and chest wall: No suspicious bony lesions. Ribs and thoracic spine appear intact throughout. Thyroid gland is within normal limits. No axillary or supraclavicular adenopathy. Abdomen: Gallstones are noted visualized portion of the gallbladder Limited evaluation of the upper abdomen is otherwise within normal limits.. IMPRESSION: 1. No pulmonary embolus. 2. Groundglass opacities in upper lobes and alveolar opacities in the lung bases. Findings are nonspecific, but can be related to pneumonia or pulmonary edema. Please correlate with clinical and laboratory data. 3. Right hilar and mediastinal lymphadenopathy which be reactive or neoplastic. 4. 5 mm, solid left lower lobe lung nodule. Recommend followup CT scan of the chest based on criteria outlined below. 5. Cholelithiasis. Assessment & Plan 65 year old female with 4 weeks of progressive cough and dyspnea presents with acute respiratory failure with hypoxia Acute and/or high-risk problems: # Acute Hypoxic Respiratory Failure. Room air oxygenation 83% on admission. Initially she required 13 L oxygen support. X-ray without infiltrate. Chest CT with interstitial process, mediastinal adenopathy. Absolute eosinophils are increased. Likely atypical pulmonary infection, not CAP, but PCR for typical pathogens is negative. Treated with ceftriaxone and azithromycin initially, ceftriaxone discontinued after 2 days. Chest auscultation and oxygen requirement are showing steady improvement - Antibiotics as per infectious disease renewable energy consultant - azithromycin now finished - Continue current oxygen support; wean as tolerated - Ambulate patient as much as possible - Assess for home O2 needs - Plan discharge home on 04/22 # Incidental Pulmonary Nodule -5mm nodule at LLL found. Recommend follow up as outpatient as appropriate for approximately [id number] smoking history Resolved, chronic, and/or stable problems: # Systemic inflammatory syndrome, acute. Respiratory rate was 22, heart rate was 106, white blood cell count 13.2 on admission. Inflammatory markers are elevated Clinical impression is atypical pulmonary infectious or autoimmune process. She continues intermittently tachycardic and minimally tachypneic, but never was clinically septic. - Resolved H/o Splenectomy, POA - No evidence of infection with encapsulated organism H/o PTSD, POA -Plan to continue Paxil 20mg daily H/o Chronic LBP, POA -Plan to continue patient's Gabapentin 300mg TID H/o Menopausal symptoms, POA - Continue Estradiol H/o IBS, POA -Will continue patient's Dicyclomine VTE Prophylaxis: Sub-Q Heparin (Unfractionated) VTE Mechanical Devices: Intermittant Pneumatic CD Resuscitation Status: CPR: Attempt Resuscitation Time spent 30 minutes Logan Sotelo MD Apr 21, 2016 14:47
--- NOTE | 2016-04-21 18:42 | NUR ---
Pain/Mobility Pt complains of "7/10" back/neck/shoulder pain. She was given 2 tabs of norco for pain, reported it did provide some relief. Also utilizing a heating pad on her back which she reports is also helpful. Ambulated with staff in the hallway x1 this evening. She was on 6L of oxygen via nasal cannula and denied SOB. Tolerated activity well.
[2016-04-22 01:05] VITALS: BP 128/75; PULSE 91; RESP 18; O2SAT 93
[2016-04-22] MEDS: Heparin 5,000 Unit/mL Inj SUBQ SCH ×2 (01:12→08:43)
[2016-04-22] MEDS: HYDROcodone-APAP 5-325 mg Tablet PO PRN ×2 (04:39→12:57)
[2016-04-22 05:37] VITALS: BP 121/78; PULSE 91; RESP 20; O2SAT 92
--- NOTE | 2016-04-22 06:27 | NUR ---
Pain/Mobility c/o 6-10/12 back pain x2. Administered PO PRN [place]. pt respond pain reduced to 5 at one time and pt appears asleep on 2nd time reassessment. Also utilizing a heating pad on her back which Pt reports helpful. pt on 2L O2 via NC; maintained SPO2 92-94%. pt up to the BSC independently. VSS. Bed is locked and in low position. call light within. will continue to monitor.
[2016-04-22 07:11] LABS: BASOPHILS % (AUTO) 1.9 % (0-3); EOSINOPHILS % (AUTO) 12.1 % (0-5); Mean Corpuscular Hemoglobin 29.8 pg (27.0-35.0); NEUTROPHILS % (AUTO) 49.8 % (40-74); Platelet Count 532 bil/L (150-400)
[2016-04-22] MEDS: Fluticasone 0.05% 15 Spray/2 Gm 16 Gm Nasal Spray NASAL SCH (08:30)
[2016-04-22 08:40] VITALS: BP 124/73; PULSE 99; RESP 16; O2SAT 92
[2016-04-22] MEDS: PARoxetine 20 mg Tablet PO SCH (08:43)
[2016-04-22 09:23] VITALS: PULSE 92
--- NOTE | 2016-04-22 10:26 | PCM.PNMED ---
Subjective Date of Service Apr 22, 2016 Subjective PULMONARY PROGRESS NOTE Overnight: No acute events Today: Denies SOB, admits to generalized pain and back pain. Tolerating 2L NC well. Denies n/v, f/c. Exam Vital Signs Vital Sign - Last Date Time Temp Pulse Resp B/P Pulse Ox O2 Delivery O2 Flow Rate FiO2 04/22/16 09:23 92 04/22/16 08:40 36.9 16 124/73 92 Nasal Cannula 2.00 Intake and Output 04/21/16 04/21/16 04/22/16 Cumulative From/Thru 15:00 23:00 07:00 04/16/16 17:51 - 04/22/16 06:46 Intake Total 500 ml 418 ml 9515 ml Output Total 300 ml 675 ml 9535 ml Balance 200 ml -257 ml -20 ml Intake Oral 500 ml 418 ml 8608 ml IV Total 907 ml Output Urine Total 300 ml 675 ml 9535 ml # Bowel Movements 1 0 7 Exam General: Resting in bed, resting comfortably, no acute distress HENT: Atraumatic, sclera anicteric, mucus membranes dry; NC in place Neck: Soft, trachea midline Cardiac: Regular rate/rhythm; no murmurs appreciated at time of examination Respiratory: Adequate air flow all araujo, without wheeze or coarse sounds Extremities: Thin, no edema Pulses: Radial equal and bilateral Skin: Warm and dry Neuro: CNII-XII grossly intact; Facial expressions symmetric; speech normal Psych: Appropriate mood, affect, and responses to questioning; alert and oriented Lab and Diagnostics Result Diagram: 04/22/16 0633 04/19/16 0434 Microbiology Nasopharyngeal swab: No chlamydia or mycoplasma; viral panel negative Sputum Gram stain - nonpurulent Influenza PCR negative Urinary strep pneumonia screen negative Blood cultures 2 negative from 04/16 . X-Rays, CTs and MRIs PROCEDURE: X-RAY CHEST ONE VIEW, PORTABLE ([id number]) INDICATIONS: chest pain TECHNIQUE: One view of the chest was acquired. COMPARISON: [facility], , CHEST 2 VIEW, 12/11/2015, 3:08. FINDINGS: Surgical changes and devices: None. Lungs and pleura: No pleural effusions or pneumothorax. Lungs are clear. Lungs are hyperinflated suggesting COPD. Please correlate with clinical data. Mediastinum: Mediastinal contours appear normal. Heart size is normal. Bones and chest wall: No suspicious bony lesions. Overlying soft tissues appear unremarkable. IMPRESSION: No acute cardiopulmonary disease process. Additional Diagnostics PROCEDURE: CT ANGIO CHEST PULMONARY EMBOLISM ([id number]) INDICATIONS: hypoxia, elevated D-Dimer COMPARISON: None. FINDINGS: Image quality: Excellent. Pulmonary arteries: Pulmonary arteries are normal in size, and demonstrate no intraluminal filling defects to suggest central pulmonary embolism. Lungs and pleura: Groundglass opacities noted in the upper lobes bilaterally. Groundglass opacity is nonspecific but can be related to pneumonia or pulmonary edema. Alveolar opacities noted in the lung bases bilaterally which could represent pneumonia or pulmonary edema. There is a 5 mm solid nodule in the left lower lobe. No pleural effusions. No pleural effusions or pneumothorax. Central and peripheral airways are patent. Mediastinum: Heart size is normal, without pericardial effusion. 1.4 cm right hilar lymph node is noted. 1.1 cm precarinal mediastinal lymph node is noted. Large aortopulmonary window mediastinal lymph nodes are noted with largest node measuring 1.2 cm in short axis. Thoracic aorta is normal in caliber and enhancement moderate-sized hiatal hernia is noted. Bones and chest wall: No suspicious bony lesions. Ribs and thoracic spine appear intact throughout. Thyroid gland is within normal limits. No axillary or supraclavicular adenopathy. Abdomen: Gallstones are noted visualized portion of the gallbladder Limited evaluation of the upper abdomen is otherwise within normal limits.. IMPRESSION: 1. No pulmonary embolus. 2. Groundglass opacities in upper lobes and alveolar opacities in the lung bases. Findings are nonspecific, but can be related to pneumonia or pulmonary edema. Please correlate with clinical and laboratory data. 3. Right hilar and mediastinal lymphadenopathy which be reactive or neoplastic. 4. 5 mm, solid left lower lobe lung nodule. Recommend followup CT scan of the chest based on criteria outlined below. 5. Cholelithiasis. Assessment & Plan PULMONARY PROGRESS NOTE Acute respiratory failure, present on admission. Improving - Decreasing O2 requirements; continue to wean as tolerated - Increase ambulation; Up to chair with meals + activity as tolerated - Diffuse abnormalities on imaging suggest atypical or noninfectious cause for her acute hypoxemic respiratory failure, eg alveolar hemorrhage, HP, inhalation injury from vape, etc.; resolving - Repeat CXR in 48h if she remains in-house - May require O2 at DC; consider arrange home O2 order as DC is determined - Recommend outpatient pulmonary FU in one month for assessment and repeat imaging, in addition to complete PFTs Suspected community acquired PNA, acute, present on admission. Under investigation - Initial thought was undiagnosed and progressed influenza with superimposed bacterial infection - Many viral and bacterial studies negative - Consideration of bronchoscopy was discussed, does not appear to be necessary at this time secondary to improvements in imaging and sx Tobacco use disorder, chronic. Ongoing - Continued counseling - Recommend cessation, including the cessation of vaporized techniques and materials Thank you for this consult. Patient can be DC'd pending medical stability by evaluation by primary team. Pulmonary recs as noted above, including possibility of home O2 at DC, and FU in one month with pulmonology for repeat CXR and complete PFTs, in addition to smoking cessation. We anticipate pt may require home O2 temporarily until further resolution occurs. Total time: 30 minutes Pain Evaluation: Adequate Pain Control VTE Prophylaxis: Sub-Q Heparin (Unfractionated) VTE Mechanical Devices: Intermittant Pneumatic CD Resuscitation Status: CPR: Attempt Resuscitation Kimberly Giles DO Apr 22, 2016 10:02
[2016-04-22 10:54] VITALS: BP 114/70; PULSE 90; RESP 18; O2SAT 92
--- NOTE | 2016-04-22 11:10 | PROG NOTE ---
[address] [address] PROGRESS NOTE PATIENT: JONES SANCHEZ : 1950 MR#: [id number] ADMIT: 04/16/2016 JOB ID: [id number] DATE: 04/22/2016 INFECTIOUS DISEASE FOLLOWUP NOTE: REASON FOR FOLLOWUP: Bilateral interstitial infiltrates, with dyspnea and shortness of breath. INTERVAL HISTORY: Overnight, the patient has continued to feel relatively well, though she feels a bit jet lagged. She has not had breakfast or coffee yet. She denies any fevers, chills, or sweats. She has a minimal dry cough and is still a bit short of breath and therefore, continues to require 3 L by nasal prongs to maintain her O2 sats. In general, though, she feels better during her 6-1/2 days here in the hospital in terms of her respiratory situation. No GI symptoms are noted. PHYSICAL EXAMINATION: Reveals a comfortable afebrile woman with nasal oxygen in place. Temperature 36.9, pulse 92, respiratory rate 16, blood pressure 124/73, saturating well on 2 L. Examination of the head reveals no notable abnormalities. The oral cavity without thrush. Lungs with a few crackles at the bases, perhaps a little more at the left. Otherwise, fair air flow. Cardiac tones: No change. Abdomen: Negative. LABORATORIES: Include white count 7500, now completely normal. Platelet count still a little bit up to 532 and still with 12% eosinophils. Creatinine 0.47. Procalcitonin 0.34, yesterday's was 0.39. C-reactive protein still 10.6, though down from 33 when she first came in. Urinalysis negative. Serologic studies include negative crypto antigen, negative hep C, negative HIV. QuantiFERON Gold is pending. Two sputums for AFB are negative, and those were done to look for MAC. Those cultures are pending. Respiratory viral panel negative. Sputum culture likewise negative with scant normal merrill. Blood cultures are negative. IMAGING: Most recent imaging was from yesterday. A chest x-ray showed decreased interstitial opacities and/or resolving pulmonary edema. IMPRESSION: This patient is now slowly improving after the recent onset of significant shortness of breath associated with bilateral interstitial type infiltrates. I suspect this is a viral or postviral process or perhaps a hypersensitivity pneumonitis. RECOMMENDATIONS: 1. I think the patient could be discontinued without antibiotics at any time. 2. She will likely need to go home on nasal oxygen with a plan to slowly taper her. 3. It is worth repeating as an outpatient a CRP and a CBC with eosinophil count in the near future. If the patient's CRP continues to be significantly elevated, she will, of course, require some more investigation to figure that out. Likewise, if her eosinophilia remains elevated, the possibility of pulmonary eosinophilic syndrome will need to be considered. 4. We await the pending cultures and studies, of course, including the QuantiFERON Gold and AFB cultures of sputum to look for MAC. 5. I am happy to see this patient as an outpatient in my clinic if so desired by the primary or pulmonary consultants. 6. Infectious Disease will sign off at this time.
[2016-04-22] MEDS ORDERED: ALBU8.5H2 INHALATION (13:28)
[2016-04-22] MEDS ORDERED: GUAI-382 PO (13:28)
--- NOTE | 2016-04-22 13:32 | NUR ---
Social Work: Discharge Data: Pt is on day 6 of hospitalization. EMR reviewed. D/C orders are in. Pt has been set up with [employer] through [facility]. No further d/c planning needs at this time. WAITER/WAITRESS will continue to follow if needs arise. Assessment: Pt who is independent at baseline. Plan: Pt will d/c home via POV today with [employer] at home. No further d/c planning needs at this time. WAITER/WAITRESS will continue to follow if needs arise. DAVID Jc
--- NOTE | 2016-04-22 13:46 | PCM.DIMED ---
Discharge Instructions Date of Service Apr 22, 2016 Dates of Hospitalization Apr 16, 2016 at 22:56 Medication Instructions A pro air inhaler has been for use for shortness of breath. Use as needed daily 2 puffs every 4 hours when necessary. If you feels that you need to use your inhaler more than every 4 hours please follow-up with your primary care physician immediately or go to the nearest emergency room. Diet No restrictions Activity Other (gradually return to normal activity as tolerated) Call your provider Fever or Chills, Shortness of breath, Chest pain, Vomitting, Excessive diarrhea , Weakness (unilateral) Patient Instructions Follow-up plan If an appointment has not already been made please contact your primary care provider and schedule a follow-up within 1 week. If an appointment has not already been made please contact the pulmonology office of Dr. Jacinto for follow-up pulmonology studies and further workup of lung mass found on chest x-ray. Follow-up with PCP in: 1 week Provider: Adilene Jacinto MD Follow-up in: 4 weeks Sarah Addison DO Apr 22, 2016 13:13
--- NOTE | 2016-04-22 14:13 | PCM.PROC ---
Procedure Note Procedure: Procedure: Osteopathic Manipulative Treatment Subjective: Patient was complaining of back pain most likely secondary to her acute respiratory issues as well as deconditioning. Patient described the pain as aching worse with lying in bed for extended period of time. Patient stated that she felt that movement seems to help relieve the pain along with stretching. Risks and benefits of OMT were explained to the patient and verbal consent obtained. Osteopathic Structural Exam: Thoracics: Paraspinal hypertonicity T1 - 7 on the left greater than right Abdomen: Right diaphragm restriction Ribs: Ribs 3 - 5 inhaled on the left, rib 4 inhaled on the right Pelvis: Anterior right innominate Sacrum: Right SI joint compression Upper extremities: Latissimus dorsi hypertonicity on the left greater than right , left clavicle restriction Patient responded well to treatment with a decrease in her back pain. Osteopathic techniques used: Myofascial release, BLT, rib raising, and soft tissue technique Sarah Addison DO Apr 22, 2016 14:13
--- NOTE | 2016-04-22 14:28 | PCM.DC.MED ---
Discharge Summary Date of Service Apr 22, 2016 Dates of Hospitalization Date of Hospital Admission Apr 16, 2016 at 22:56 Date of Discharge: Apr 22, 2016 Providers: Admitting Physician: Antwan Tamez MD Primary Care Physician: Davion Monae MD Attending Physician: Antwan Tamez MD Diagnosis at Time of Discharge Diagnosis at Time of Discharge Pneumonia community-acquired responded well to treatment with azithromycin Lung mass to be followed up by pulmonology for further workup Hypoxia patient is to go home on home oxygen 2-3 L daily Procedures XRay, CTs & MRIs PROCEDURE: X-RAY CHEST ONE VIEW, PORTABLE ([id number]) INDICATIONS: chest pain TECHNIQUE: One view of the chest was acquired. COMPARISON: [facility], CHEST 2 VIEW, 12/11/2015, 3:08. FINDINGS: Surgical changes and devices: None. Lungs and pleura: No pleural effusions or pneumothorax. Lungs are clear. Lungs are hyperinflated suggesting COPD. Please correlate with clinical data. Mediastinum: Mediastinal contours appear normal. Heart size is normal. Bones and chest wall: No suspicious bony lesions. Overlying soft tissues appear unremarkable. IMPRESSION: No acute cardiopulmonary disease process. Other Diagnostics PROCEDURE: CT ANGIO CHEST PULMONARY EMBOLISM ([id number]) INDICATIONS: hypoxia, elevated D-Dimer COMPARISON: None. FINDINGS: Image quality: Excellent. Pulmonary arteries: Pulmonary arteries are normal in size, and demonstrate no intraluminal filling defects to suggest central pulmonary embolism. Lungs and pleura: Groundglass opacities noted in the upper lobes bilaterally. Groundglass opacity is nonspecific but can be related to pneumonia or pulmonary edema. Alveolar opacities noted in the lung bases bilaterally which could represent pneumonia or pulmonary edema. There is a 5 mm solid nodule in the left lower lobe. No pleural effusions. No pleural effusions or pneumothorax. Central and peripheral airways are patent. Mediastinum: Heart size is normal, without pericardial effusion. 1.4 cm right hilar lymph node is noted. 1.1 cm precarinal mediastinal lymph node is noted. Large aortopulmonary window mediastinal lymph nodes are noted with largest node measuring 1.2 cm in short axis. Thoracic aorta is normal in caliber and enhancement moderate-sized hiatal hernia is noted. Bones and chest wall: No suspicious bony lesions. Ribs and thoracic spine appear intact throughout. Thyroid gland is within normal limits. No axillary or supraclavicular adenopathy. Abdomen: Gallstones are noted visualized portion of the gallbladder Limited evaluation of the upper abdomen is otherwise within normal limits.. IMPRESSION: 1. No pulmonary embolus. 2. Groundglass opacities in upper lobes and alveolar opacities in the lung bases. Findings are nonspecific, but can be related to pneumonia or pulmonary edema. Please correlate with clinical and laboratory data. 3. Right hilar and mediastinal lymphadenopathy which be reactive or neoplastic. 4. 5 mm, solid left lower lobe lung nodule. Recommend followup CT scan of the chest based on criteria outlined below. 5. Cholelithiasis. Brief History This patient is a 65 year old female with a history of alcoholism, pneumonia, splenectomy, and PTSD who presented to the ED productive cough that began 3 weeks ago, but worse in the past week. She was brought in via EMS after being found hypoxic with a saturation of 83% at home. She endorses having fevers and chills in the past week and notes a fever of 102 F yesterday. She reports mild N /V, decreased appetite, myalgia, and increased dyspnea. She reports that her does not have any symptoms, but her neighbor has had similar symptoms recently, but has recovered. She has had her influenza and pneumonia immunizations this year. In the ED, she was tachycardic at 105 and saturating 83% on RA. She was placed on 6L NRB and improved to 94% SpO2. Her WBC was mildly elevated at 13.4, with normal diff. Her d-dimer was elevated so a CTA was performed, which revealed Groundglass opacities in upper lobes and alveolar opacities in the lung bases. There was also right hilar and mediastinal lymphadenopathy and a 5mm LLL lung nodule. She continued to be hypoxic on RA, so she was started on CAP antibiotics with plan for admission. Patient was admitted for pneumonia and she had a full course of azithromycin. Patient seemed to respond well to treatment however her oxygen requirements were still necessary. Patient on room air with satting at 86% and patient will go home on oxygen therapy 2-3 L to maintain good oxygen saturation. Upon chest x -ray a right hilar and mediastinal lymphadenopathy was found which was reported as possibly reactive or neoplastic also a 5 mm, solid left lower lobe lung nodule was also profound with recommended follow-up to rule out possible neoplasm. Patient was also seen by infectious disease doctor Ryan who ran [employer] and [employer] cultures to look for MAC. Dr. Davis also recommended that she have follow-up CRP and CBC with eosinophilia count done in the near future to assess if her eosinophilia has resolved as there is concern that she may have pulmonary eosinophilic syndrome. Dr. Davis is willing to see the patient on an outpatient basis if pulmonary or her primary care feel that further workup is necessary. Hospital Course PULMONARY PROGRESS NOTE Acute respiratory failure, present on admission. Improving - Decreasing O2 requirements; continue to wean as tolerated - Increase ambulation; Up to chair with meals + activity as tolerated - Diffuse abnormalities on imaging suggest atypical or noninfectious cause for her acute hypoxemic respiratory failure, eg alveolar hemorrhage, HP, inhalation injury from vape, etc.; resolving - Repeat CXR in 48h if she remains in-house - May require O2 at DC; consider arrange home O2 order as DC is determined - Recommend outpatient pulmonary FU in one month for assessment and repeat imaging, in addition to complete PFTs Suspected community acquired PNA, acute, present on admission. Under investigation - Initial thought was undiagnosed and progressed influenza with superimposed bacterial infection - Many viral and bacterial studies negative - Consideration of bronchoscopy was discussed, does not appear to be necessary at this time secondary to improvements in imaging and sx Tobacco use disorder, chronic. Ongoing - Continued counseling - Recommend cessation, including the cessation of vaporized techniques and materials Thank you for this consult. Patient can be DC'd pending medical stability by evaluation by primary team. Pulmonary recs as noted above, including possibility of home O2 at DC, and FU in one month with pulmonology for repeat CXR and complete PFTs, in addition to smoking cessation. We anticipate pt may require home O2 temporarily until further resolution occurs. Total time: 30 minutes Exam Vital Signs (Last) Date Time Temp Pulse Resp B/P Pulse Ox O2 Delivery O2 Flow Rate FiO2 04/22/16 10:54 37.0 90 18 114/70 92 Nasal Cannula 2.00 Exam Physical Exam: GEN: Patient was awake, alert, responding appropriately to questions HEENT: PERRLA, EOMI, Neck soft supple, trachea midline, nomocephalic/atraumatic CV: +S1/S2, RRR, no murmurs auscultated Respiratory: + rhonchi, no wheezes or rales, good inspiratory effort GI: +bowel sounds x4, soft, compressible, non TTP EXT: no c/c/e Neuro: CN II-XII grossly intact Psych: mood and affect were appropriate Osteopathic Structural Exam: Thoracics: Paraspinal hypertonicity T1 - 7 on the left greater than right Abdomen: Right diaphragm restriction Ribs: Ribs 3 - 5 inhaled on the left, rib 4 inhaled on the right Pelvis: Anterior right innominate Sacrum: Right SI joint compression Upper extremities: Latissimus dorsi hypertonicity on the left greater than right , left clavicle restriction Test 04/16/16 18:14 04/17/16 00:30 04/17/16 14:00 04/19/16 04:34 D-Dimer 0.8mg/L (<0.50) Lactic Acid Level 1.6mmol/L (0.4-2.0) Total Bilirubin 0.3mg/dL (0.0-1.2) Aspartate Amino Transf (AST/SGOT) 34U/L (0-50) Alanine Aminotransferase (ALT/SGPT) 13U/L (0-32) Alkaline Phosphatase 72U/L (25-165) Troponin T < 0.010ug/L (0.0-0.011) Pro-B-Type Natriuretic Peptide 455.7pg/mL (0-301) Total Protein 7.1g/dL (6.4-8.4) Albumin 3.1g/dL (3.4-5.0) Hold Bond Top Tube Received (Received) Urine Color Yellow (YELLOW) Urine Appearance Hazy (CLEAR,HAZY) Urine pH 6.0 (5.0-8.0) Urine Specific [place] 1.010 (1.003-1.035) Urine Protein Negativemg/dL (NEG,TRACE) Urine Glucose (UA) Negativemg/dL (NEGATIVE) Urine Ketones Negativemg/dL (NEGATIVE) Urine Occult Blood Negative (NEGATIVE) Urine Nitrite Negative (NEGATIVE) Urine Bilirubin Negative (NEGATIVE) Urine Urobilinogen Normalmg/dL (NORMAL) Urine Leukocyte Esterase Negative (NEGATIVE) Urine RBC 0-2/hpf (0-2) Urine WBC 0-5/hpf (0-5) Urine Epithelial Cells Occasional/hpf (NONE-MOD) Urine Crystals None seen (NONE SEEN) Urine Bacteria Few/hpf (NONE-FEW) Urine Hyaline Casts None/lpf (NONE) Urine Granular Casts None seen (NONE SEEN) Urine Waxy Casts None seen (NONE SEEN) Urine Red Blood Cell Casts None seen (NONE SEEN) Urine White Blood Cell Casts None seen (NONE SEEN) Urine Mucus None seen (None Seen) Urine Trichomonas None seen (NONE SEEN) Urine Yeast None (NONE SEEN) Urinalysis Comment None Urine Culture Reflexed Not indicated Urine Legionella pneumophilia Ag Negative (Negative) Angiotensin Converting Enzyme 46U/L (14-82) Cryptococcus Antigen Negative (Negative) Hepatitis C Antibody <0.1s/co ratio (0.0-0.9) HIV (1&2) Ag and Ab, 4th Generation Non reactive (Non Reactive) Sodium Level 137mEq/L (134-144) Potassium Level 4.7mEq/L (3.5-5.2) Chloride Level 99mEq/L (97-108) Carbon Dioxide Level 26mmol/L (18-29) Blood Urea Nitrogen 14mg/dL (8-27) Creatinine 0.47mg/dL (0.57-1.00) Estimat Glomerular Filtration Rate 190mL/min (>59) Glucose Level 84mg/dL (60-99) Calcium Level 8.3mg/dL (8.5-10.1) Phosphorus Level 3.3mg/dL (2.5-4.9) Magnesium Level 2.3mg/dL (1.6-2.6) Test 04/22/16 06:33 White Blood Count 7.5th/mm3 (3.8-10.1) Red Blood Count 4.20mil/mm3 (3.90-5.20) Hemoglobin 12.5g/dL (12.0-15.6) Hematocrit 37.8% (35.0-46.0) Mean Corpuscular Volume 90.0fL (81-100) Mean Corpuscular Hemoglobin 29.8pg (27.0-35.0) Mean Corpuscular Hemoglobin Concent 33.1% (32.0-37.0) Red Cell Distribution Width 14.0% (12.3-15.4) Platelet Count 532bil/L (150-400) Neutrophils (%) (Auto) 49.8% (40-74) Lymphocytes (%) (Auto) 24.7% (14-46) Monocytes (%) (Auto) 11.0% (4-12) Eosinophils (%) (Auto) 12.1% (0-5) Basophils (%) (Auto) 1.9% (0-3) C-Reactive Protein 10.6mg/dL (0.0-0.5) Procalcitonin 0.34ng/mL (See Comment) Microbiology Results Nasopharyngeal swab: No chlamydia or mycoplasma; viral panel negative Sputum Gram stain - nonpurulent Influenza PCR negative Urinary strep pneumonia screen negative Blood cultures 2 negative from 04/16 . Discharge Medications Discharge Medications Albuterol HFA (Proair HFA) 8.5 Gm Hfa.aer.ad 2 PUFFS INHALATION Q4H Prescribed by: MEGAN SON MD Estradiol (Estradiol) 0.5 Mg Tablet 0.5 MG PO DAILY (Reported) Fluticasone Propionate (Fluticasone Propionate Nasal) 16 Gm [place].susp 1 SPRAY NASAL DAILY (Reported) Gabapentin (Gabapentin) 300 Mg Capsule 300 MG PO TID (Reported) Paroxetine (Paroxetine) 20 Mg Tablet 20 MG PO DAILY (Reported) As needed Guaifenesin/Pseudoephedrne HCl (Mucinex D ER 1,200-120 mg Tab) 1 Each Tab.er.12h 1 EACH PO BID PRN PRN For Cough Prescribed by: MEGAN SON MD Ibuprofen (Ibuprofen) 400 Mg Tablet 400 MG PO BID PRN PRN For Pain (Reported) Tizanidine (Tizanidine) 4 Mg Tablet 4 MG PO TID PRN PRN For Pain (Reported) Additional med instructions A pro air inhaler has been for use for shortness of breath. Use as needed daily 2 puffs every 4 hours when necessary. If you feels that you need to use your inhaler more than every 4 hours please follow-up with your primary care physician immediately or go to the nearest emergency room. Followup Plan Disposition: Stable discharge to home Follow-up plan If an appointment has not already been made please contact your primary care provider and schedule a follow-up within 1 week. If an appointment has not already been made please contact the pulmonology office of Dr. Jacinto for follow-up pulmonology studies and further workup of lung mass found on chest x-ray. Discharge Diet: No restrictions Discharge Activity: Other (gradually return to normal activity as tolerated) Follow-up with PCP in: 1 week Provider: Adilene Jacinto MD Follow-up in: 4 weeks copies to: Davion Monae MD; Adilene Jacinto MD, Precious L DO Apr 22, 2016 13:55
--- NOTE | 2016-04-22 17:40 | NUR ---
DISCHARGE Patient discharged at 1600, left with who will drive her home. Patient denies pain, nausea, and shortness of breath. Medications and Rx's reviewed and patient verbalizes understanding. IV catheter removed intact, Home O2 x2 bottles when home with patient, and follow up appointments with PCP and automobile bumper straightener made, patient made aware that pulmonology appointment is not until 11/19 and urgency to get seen sooner.
== END 2016-04-22 15:54 | disposition home or self-care (01) | DRG 193 ==
LOC: SED 17:49 → OSC 22:56 → CCU 04-17 05:15 → PCC 04-17 06:01 → MOC 04-21 14:53
PROVIDERS: ADMIT Internal Medicine; ATTEND Internal Medicine
PROC: 4A033R1 Measurement of Arterial Saturation, Peripheral, Percutaneous Approach (ICD-10-PCS; principal; 2016-04-17)
DX: J18.9 Pneumonia, unspecified organism (principal); J96.01 Acute respiratory failure with hypoxia; M54.5 Low back pain; F43.10 Post-traumatic stress disorder, unspecified; K58.9 Irritable bowel syndrome, unspecified; F17.210 Nicotine dependence, cigarettes, uncomplicated; Z79.818 Long term (current) use of other agents affecting estrogen receptors and estrogen levels

== ENCOUNTER 2016-06-08 04:18 | Emergency (ER) | payer MEDICARE ==
[~2016-06-08 04:18] MED LIST changes: +ALBU8.5H2 INHALATION; +ESTR0.5T PO; +FLUT16SP NASAL; +GABA-502 PO; +GUAI-382 PO; +IBUP400T22 PO; +PARO20TA5 PO; -PAX20; +TIZA4TAB4 PO
--- NOTE | 2016-06-08 04:26 | ED.REPORT ---
HPI-Psychiatric Illness Date of Service Jun 08, 2016 ED Provider: MD Dalia This is a 65 year old female with a history of PTSD presenting to the ED via EMS due to manic behavior. In the ED, pt reports she has not slept in 4 days, also reports "fever blisters down my throat" which has caused difficulty swallowing due to pain. Denies fever, chills, nausea, vomiting at this time. Interview is limited due to patient condition. Nursing Notes Stated Complaint: PANIC ATTACK Nursing Notes Reviewed: Yes Allergies: Coded Allergies: Benzodiazepines (Verified Allergy, Severe, 04/16/16) chlordiazepoxide (Verified Allergy, Severe, 04/16/16) fluoxetine (Verified Allergy, Severe, 04/16/16) Uncoded Allergies: LIBRIUM (Allergy, Unknown, 01/06/05) Scheduled Albuterol HFA (Proair HFA) 8.5 Gm Hfa.aer.ad 2 PUFFS INHALATION Q4H Estradiol (Estradiol) 0.5 Mg Tablet 0.5 MG PO DAILY Fluticasone Propionate (Fluticasone Propionate Nasal) 16 Gm [place].susp 1 SPRAY NASAL DAILY Gabapentin (Gabapentin) 300 Mg Capsule 300 MG PO TID Paroxetine (Paroxetine) 20 Mg Tablet 20 MG PO DAILY Scheduled PRN Guaifenesin/Pseudoephedrne HCl (Mucinex D ER 1,200-120 mg Tab) 1 Each Tab.er.12h 1 EACH PO BID PRN PRN For Cough Haloperidol (Haloperidol) 5 Mg Tablet 5 MG PO HS PRN PRN Insomnia Ibuprofen (Ibuprofen) 400 Mg Tablet 400 MG PO BID PRN PRN For Pain Tizanidine (Tizanidine) 4 Mg Tablet 4 MG PO TID PRN PRN For Pain General Time Seen by MD: 04:26 Chief Complaint Manic Hx Obtained From: Patient Arrived By: Walk-in Onset Occurred: Just prior to arrival Symptom Duration: Since onset Severity: Current: No pain currently Pertinent Negative: Pt denies other symptoms Recent Healthcare: No recent doctor visit, No recent hospitalization Similar Sx Previous: No Risk-Psychiatric Illness Suicide Risk Stratification RF Statements: Risk factors reviewed Past Medical History Past Medical History pneumonia Reports: Mental illness Reports: Depression Past Surgical History Splenectomy Smoking History Current Every Day Smoker Social History history of substance abuse Ambulatory Status Independent Review of Systems Constitutional: Denies: Chills, Fever Respiratory: Reports: Shortness of breath, Denies: Non-productive cough Cardiovascular: Denies: Chest pain GI: Denies: Nausea, Vomiting Complete sys rev & neg: except as marked. Ears / Nose / Throat: Reports: Sore throat, Throat pain Physical Exam Initial Vital Signs Vital Signs (First) Date Time Temp Pulse Resp B/P Pulse Ox O2 Delivery O2 Flow Rate FiO2 06/08/16 04:31 36.6 98 24 139/101 99 Nasal Cannula 2 - Initial VS: Unavailable, Vital signs abnormal Head / Eyes: Atraumatic, Normocephalic, PERRL ENT: Mucous membranes moist Neck: Supple, Non-tender, Full range of motion Respiratory: Breath sounds normal, Clear to auscultation, No respiratory distress Cardiovascular: Regular rate & rhythm, Heart sounds normal, Intact distal pulses Abdomen / GI: Soft, Non-tender, No guarding, No rebound, No distention Extremities: Vascular intact, Neuro intact, No swelling, No tenderness Skin: Warm, Dry, No cyanosis General/Constitutional: Awake, Alert Neurologic: Oriented X3, Speech NL, No motor deficits, No sensory deficits, CN II - XII intact Psychiatric: No hallucinations Interpretation & Diagnostics Lab Results Interpretation Test 06/08/16 05:55 Urine Color Yellow (YELLOW) Urine Appearance Clear (CLEAR,HAZY) Urine pH 7.5 (5.0-8.0) Urine Specific [place] 1.015 (1.003-1.035) Urine Protein Negativemg/dL (NEG,TRACE) Urine Glucose (UA) Negativemg/dL (NEGATIVE) Urine Ketones 15mg/dL (NEGATIVE) Urine Occult Blood Negative (NEGATIVE) Urine Nitrite Negative (NEGATIVE) Urine Bilirubin Negative (NEGATIVE) Urine Urobilinogen Normalmg/dL (NORMAL) Urine Leukocyte Esterase Small (NEGATIVE) Urine RBC 0-2/hpf (0-2) Urine WBC 0-5/hpf (0-5) Urine Epithelial Cells Moderate/hpf (NONE-MOD) Urine Crystals None seen (NONE SEEN) Urine Bacteria Few/hpf (NONE-FEW) Urine Hyaline Casts Occasional/lpf (NONE) Urine Granular Casts None seen (NONE SEEN) Urine Waxy Casts None seen (NONE SEEN) Urine Red Blood Cell Casts None seen (NONE SEEN) Urine White Blood Cell Casts None seen (NONE SEEN) Urine Mucus None seen (None Seen) Urine Trichomonas None seen (NONE SEEN) Urine Yeast None (NONE SEEN) Urinalysis Comment None Urine Culture Reflexed Indicated Re-Eval/Medical Decision Med Decision/Clinical Course 65-year-old female who presents quite agitated and with pressured speech. She assures me that she has no psychiatric diagnosis except PTSD. She has not slept for 4 nights. Benzodiazepines are listed as an allergy for her. She was given Haldol 2 mg IV and Benadryl 25 mg IV with call me and drowsiness. She is being discharged home with haloperidol 5 mg by mouth to use for the next few nights in an attempt to calm her sufficiently so she can sleep and reestablish her sleep pattern Counseled Regarding: Diagnosis, Lab results, Need for follow-up, When/why to return to ED Discharge & Departure Impression: Primary Impression: Insomnia Insomnia type: unspecified Qualified Code: G47.00 - Insomnia, unspecified Additional Impression: PTSD (post-traumatic stress disorder) )( Condition at Discharge: No danger to self, No danger to others, No suicidal ideation, No homicidal ideation Discharge Condition All VS Reviewed: Yes Condition: Stable Patient Instructions: Insomnia in Older People (GEN) Additional Instructions: Haloperidol 5 mg at bedtime as needed for insomnia. This is not for long-term use but should help to reestablish your sleep pattern. Talk to your regular doctor about longer-term solutions. Referrals: Davion Monae MD (PCP) Care Transferred to: Dr. Rios at change of shift Care Transferred at: 06:00 Scribe Attestation Portions of this note were transcribed by Catherine Crowley. I, Dr. Gómez personally performed the history, physical exam and medical decision-making; I reviewed and confirmed the accuracy of the information in the transcribed note. Signed by: amarilys Crow. 06/07/2016, 06:00. Zafar Gómez MD Jun 08, 2016 04:26 CATHERINE CROWLEY Jun 08, 2016 04:29
[2016-06-08 04:31] VITALS: BP 139/101; PULSE 98; RESP 24; O2SAT 99
[2016-06-08] MEDS ORDERED: 0.9% Sodium Chloride 1,000 ML IV ONE (04:46)
[2016-06-08] MEDS ORDERED: Haloperidol 5 mg/mL Inj IVPUSH ONE (04:50)
[2016-06-08 06:09] LABS: APPEARANCE,URINE CLEAR (CLEAR,HAZY); COLOR,URINE YELLOW (YELLOW); OCCULT BLOOD,URINE NEGATIVE (NEGATIVE); PH,URINE 7.5 (5.0-8.0)
[2016-06-08 06:10] LABS: UROBILINOGEN,URINE NORMAL (NORMAL)
[2016-06-08 06:39] VITALS: BP 130/92; PULSE 92; RESP 18; O2SAT 99
[2016-06-08] MEDS ORDERED: HAL5 PO (06:55)
== END 2016-06-08 07:09 ==
LOC: SED 04:18
DX: G47.00 Insomnia, unspecified (principal); F43.10 Post-traumatic stress disorder, unspecified; R13.10 Dysphagia, unspecified; R07.0 Pain in throat; F17.200 Nicotine dependence, unspecified, uncomplicated; Z88.8 Allergy status to other drugs, medicaments and biological substances
CPT/HCPCS: 81000; 87086; 87088; 96374; 96375; 99284; J1200; J1630; J7030